=== PATIENT | female | born 1955 | race Caucasian/White ===

== ENCOUNTER 2018-06-20 23:31 | Emergency (ER) | payer OTHER ==
[2018-06-20] MEDS ORDERED: AMIODARONE HCL 150 MG/3 ML INJ IV ONE (23:32)
[2018-06-20] MEDS ORDERED: D50W 25 GM/50 ML SYRINGE IV ONE (23:32)
[2018-06-20] MEDS ORDERED: EPINEPHrine 1 MG/10 ML SYR IV ONE (23:32)
[2018-06-20] MEDS ORDERED: NALOXONE 0.4 MG/ML VIAL IV ONE (23:32)
--- OUTSIDE RECORDS SUMMARY | 2018-06-20 23:37 | XMS REPORT | Continuity of Care Document ---
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 07/07/20 [facility] ANEURYSM, 15 [place] NONRUPTURED" HEP Active 05/29/20 [facility] CW/ELASTROGRAPH [address] [place] [address] Center V02.62 - Active 05/22/20 [facility] HEPATITIS C CAR 15 [place] F/U Active 05/18/[address] 2 WK FOLLOW UP Active 03/28/[address] 722.71 - CERV Active 12/27/19 [facility] DISC DIS W 15 [place] BDDC-CIRRHOSIS OF Active 12/01/19 [facility] LIVER [address] [place] [address] HEP C Active 10/13/[address] AMS Active 10/10/[address] 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<sup[facility], from [facility] 2</sup> [facility] Medical on 06/20/15. Center FH: Diabetes Active 05/10/20 Problem 07/01/2016 Data OPID mellitus<sup>4</s 14 [facility] up[facility] from [facility] Medical on 06/20/15. Center DIABETES Active 05/10/20 Condition 12/26/2014 [facility] 14 Neuro MENINGIOMA Active 05/10/[address] CERVICAL SPINAL Active 02/21/20 Condition 12/26/2014 [facility] STENOSIS 14 Neuro CERVICAL DISC Active 02/21/20 Condition 12/26/2014 [place] DISORDER W/MYELO 14 Neuro Cervical Active 12/29/19 Problem 07/01/2016 Data OPID radiculitis<sup>3 14 migrated Scott </sup> from [facility] on 06/20/15. Center CERVICAL PAIN Active 12/29/19 Condition 12/26/2014 [facility] 14 Neuro CERVICAL Active 12/29/19 Condition 12/26/2014 [facility] RADICULITIS 14 Neuro CERVICAL Active 12/28/19 Condition 12/26/2014 [facility] RADICULOPATHY 14 Neuro Brain tumor Active Problem 07/01/2016 ABDULAZIZ Chavez,[facility] COPD Active Problem 07/01/2016 ABDULAZIZ Chavez,[facility] Hepatitis C Active Problem 07/01/2016 ABDULAZIZ Chavez,[facility] Chronic Resolved Problem 07/01/2016 [facility] bronchitis [facility], ABDULAZIZ Chavez Depression Active Problem 07/01/2016 [facility], ABDULAZIZ Chavez Meningioma Active Problem 07/01/2016 [facility], ABDULAZIZ Chavez Cervical stenosis Active Problem 01/28/2015 ABDULAZIZ Chavez,[facility] Ascites Active Problem 07/01/2016 ABDULAZIZ Chavez,[facility] Hepatic Active Problem 07/01/2016 ABDULAZIZ encephalopathy Scott,[facility] NEOPLASM Active Condition 12/26/2014 [facility] 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 Condition 12/26/2014 [facility] Neuro CHERYL NOBLE CEREBR Active [facility] ALTERED MENTAL Active [facility] Medications Medication Details Route Status Patient Ordering Order Source Instructions Provider Date Lactulose 667 20 gm=30 mL, PO, Active 06/06[facility] [place] MG/ML Oral BID, X 30 day, # 2016 Medical Solution 1800 mL, 6 Center Refill(s), Pharmacy: [id number] spironolactone 50 50 mg=1 tab, PO, Active 06/06[facility] [place] mg oral tablet BID, 0 Refill(s) 2016 [facility] Furosemide 40 MG 40 mg=1 tab, PO, Active 06/06[facility] [place] Oral Tablet Daily, 0 2015 Medical Refill(s) [place] Hydroxyzine 25 mg=1 tab, PO, Active 06/06[facility] Hydrochloride 25 TID, 0 Refill(s) 2015 Medical MG Oral Tablet [place] Aspirin 325 MG 325 mg=1 tab, Active 06/06[facility] Oral Tablet PO, Daily, 0 2015 Medical Refill(s) [place] sofosbuvir 400 mg, PO, Active [facility] Daily, 0 2014 Medical Refill(s) Center Ribavirin See Active [facility] Instructions, 2015 Medical 400 mg in AM Center 600 mg in PM, 0 Refill(s)Special Instructions: 400 mg in AM 600 mg in PM Flexeril PO, TID, 0 Active [facility] Refill(s) 2014 Medical Center Nebulizer 1 ea, MISC, Active [facility] ONCALL, # 1 ea, 2015 Medical 0 Refill(s) [place] aripiprazole 2 MG 2 mg=1 tab, PO, Active [facility] Oral Tablet Daily, 0 2014 Medical [Abilify] Refill(s) [place] TYLENOL PM EXTRA Active [facility] STRENGTH TABS 2014 Neuro TYLENOL EXTRA Active [facility] STRENGTH TABS 2015 Neuro WALE-PLUS G CAPS Active [facility] 2014 Neuro LACTULOSE SOLN Active [facility] 2014 Neuro Lactulose 667 10 gm=15 mL, PO, Active [facility] MG/ML Oral BID, Please 2015 Medical Solution titrate to 2 Center bowel movements a day, # 1,000 mL, 10 Refill(s), Pharmacy: [facility] [id number] Instructions: Please titrate to 2 bowel movements a day 12 HR cetirizine 1 tab, PO, BID, Active [facility] hydrochloride 5 0 Refill(s) 2014 Medical MG / Center Pseudoephedrine Hydrochloride 120 MG Extended Release Tablet [Zyrtec-D] Advil PM 2 tab, PO, Active [facility] Bedtime, 0 2014 Medical Refill(s) [place] aspirin 325 mg 650 mg=2 tab, Active [facility] tablet PO, BID, 0 2014 Medical Refill(s) [place] tiotropium 0.018 1 ea, Route: No Longer [facility] MG/ACTUAT INHALATION, Active 2013 Medical Inhalant Powder Daily, Dosing Center [Spiriva] Weight 62.6, kg, Start date: 10/12/14 9:00:00, Duration: 30 day, Stop date: 11/10/14 9:00:00 Lidocaine 1 patch, TOP, Active [facility] Hydrochloride Daily, # 10 2013 Medical 0.05 MG/MG patch, 0 Center Transdermal Patch Refill(s) [Lidoderm] tiotropium 0.018 18 microgram=1 Active [place] MG/ACTUAT inhalation, 2013 Medical Inhalant Powder INHALATION, [place] [Spiriva] RDaily, 0 Refill(s) Lactulose 667 10 gm=15 mL, PO, Active [place] MG/ML Oral BID, Please 2014 Medical Solution titrate to 2 Center bowel movements a day, # 900 mL, 2 Refill(s)Special Instructions: Please titrate to 2 bowel movements a day tiotropium 0.018 18 microgram, 1 Inactive [place] MG/ACTUAT inhalation, 2013 Medical Inhalant Powder Route: [place] [Spiriva] INHALATION, Drug form: CAP, RDaily, Dosing Weight 62.6, kg, Start date: 10/11/14 12:03:00, Stop date: 11/10/14 8:00:00Notes: (Same As: Spiriva). Lactulose 667 10 gm, 15 mL, Inactive [place] MG/ML Oral Route: PO, Drug 2013 Medical Solution Form: SYRP, [place] Dosing Weight 54.545, kg, TID, Start date: 10/11/14 9:00:00, Duration: 30 day, Stop date: 11/09/14 17:00:00Notes: (Same as:Chronulac) Lactulose 667 10 gm, 15 mL, Inactive [place] MG/ML Oral Route: PO, Drug 2013 Medical Solution Form: SYRP, [place] Dosing Weight 54.545, kg, TID, Start date: 10/11/14 8:00:00, Duration: 30 day, Stop date: 11/09/14 17:00:00Notes: (Same as:Chronulac) TRAMADOL HCL 50 take one pill No Longer 07/13/ [place] MG TABS every 6-8 hours Active 2013 Neuro prn pain TRAMADOL HCL 50 take one pill Active 07/13/ [facility] MG TABS every 6-8 hours 2013 Neuro prn pain pneumococcal 0.5 ml, Route: Inactive [place] capsular IM, Drug Form: 2013 Medical polysaccharide INJ, Daily, [place] type 1 vaccine / Start date: pneumococcal 07/09/14 capsular 12:30:00, polysaccharide Duration: 1 type 10A vaccine doses or times, / pneumococcal Stop date: capsular 07/09/14 polysaccharide 12:30:00Notes: type 11A vaccine (Same as: / pneumococcal Pneumovax 23) capsular Refrigerate polysaccharide type 12F vaccine / pneumococcal capsular polysacchar Acetaminophen 300 See Active [place] MG / Codeine Instructions, 2013 Medical Phosphate 60 MG Pain, 1 - 2 tab Center Oral Tablet PO Q4H 2 day, # [Tylenol with 60 tab, 0 Codeine #4] Refill(s)Special Instructions: 1 - 2 tab PO Q4H 2 day Ondansetron 4 MG 4 mg=1 tab, PO, Active [place] Oral Tablet Q8H, as needed 2013 Medical [Zofran] for Center nausea/vomiting, # 30 tab, 0 Refill(s) Docusate Sodium 100 mg=1 cap, Active [place] 100 MG Oral PO, BID, 2013 Medical Capsule [Colace] Constipation, # Center 100 cap, 0 Refill(s) Ciprofloxacin 500 500 mg=1 tab, Active [place] MG Oral Tablet PO, Q12H, # 14 2014 Medical [Cipro] tab, 0 Refill(s) Center Acetaminophen 325 1-2 tab, PO, No Longer [facility] MG / Hydrocodone Q4-6H, Pain, # Active 2013 Medical Bitartrate 10 MG 60 tab, 2 Center Oral Tablet Refill(s) Ciprofloxacin 250 mg, 1 tab, No Longer [place] Route: PO, Drug Active 2013 Medical form: TAB, Center [id number], Dosing Weight 59.091, kg, Priority: NOW, Start date: 07/07/14 22:59:00, Duration: 3 day, Stop date: 07/10/14 10:59:00Notes: May interfere w/enteral feedings - Take 1 hr before or 2 hrs after antacids, dairy pdt & minerals. On empty stomach. Ciprofloxacin 3 4 drp, Route: No Longer [place] MG/ML / RIGHT EAR, Drug Active 2013 Medical Dexamethasone 1 Form: SOLN, [place] MG/ML Otic Dosing Weight Suspension 59.091, kg, [Ciprodex] Q12H, Start date: 07/07/14 21:00:00, Duration: 30 day, Stop date: 08/06/14 9:00:00Notes: (Same As: Ciprodex) Tylenol 650 mg, 2 tab, No Longer [place] Route: PO, Drug Active 2013 Medical form: TAB, Q6H, Center Dosing Weight 59.091, kg, PRN For Temp > 100.4 F, Start date: 07/07/14 20:48:00, Duration: 30 day, Stop date: 08/06/14 20:47:00Notes: Do not exceed 4 gm/day. (Same as: Tylenol) Zyrtec 10 mg, 1 tab, No Longer [place] Route: PO, Drug Active 2013 Medical form: TAB, BID, Center Dosing Weight 59.091, kg, PRN Allergies, Start date: 07/07/14 17:14:00, Duration: 30 day, Stop date: 08/06/14 17:13:00Notes: (Same As: Zyrtec) Flexeril 10 mg, 1 tab, No Longer [place] Route: PO, Drug Active 2013 Medical form: TAB, TID, Center Dosing Weight 59.091, kg, PRN Spasm, Start date: 07/07/14 6:47:00, Duration: 30 day, Stop date: 08/06/14 6:46:00Notes: (Same As: Flexeril) Acetaminophen 300 2 tab, Route: No Longer [place] MG / Codeine PO, Drug Form: Active 2013 Medical Phosphate 30 MG TAB, Dosing Center Oral Tablet Weight 59.091, [Tylenol with kg, Q4H, PRN Codeine #3] Pain Score 4-6, Start date: 07/07/14 6:32:00, Duration: 30 day, Stop date: 08/06/14 6:31:00Notes: Do not exceed 4gm/day of acetaminophen. (Same as: Tylenol with Codeine # 3) magnesium sulfate 2 gm, 50 mL, Inactive [place] Route: IVPB, 2013 Medical Drug form: INJ, Center ONCE, Start date: 07/07/14 3:00:00, Stop date: 07/07/14 3:00:00 Albuterol 0.833 3 mL, Route: No Longer [place] MG/ML / INHALATION, Drug Active 2013 Medical Ipratropium Form: SOLN, Center [place] 0.167 Dosing Weight MG/ML Inhalant 59.091, kg, Solution [DuoNeb] RQ6H, Start date: 07/07/14 2:00:00, Duration: 30 day, Stop date: 08/05/14 20:00:00Notes: (Same as: Duoneb) Albuterol 0.83 2.49 mg, 3 mL, No Longer [place] MG/ML Inhalant Route: Active 2013 Medical Solution INHALATION, Drug Center form: SOLN, Q2H, Dosing Weight 59.091, kg, PRN as needed for wheezing, Start date: 07/07/14 0:12:00, Duration: 30 day, Stop date: 08/06/14 0:11:00Notes: SEE RT DOCUMENTATION (Same as: Proventil) Vancomycin 6.67 1 gm, Route: No Longer [place] MG/ML Injectable IVPB, Drug form: Active 2013 Medical Solution INJ, Q12H, Center Dosing Weight 59.091, kg, Start date: 07/06/14 21:00:00, Duration: 2 doses or times, Stop date: 07/07/14 9:00:00Notes: (Same As: Vancocin) Infusion rate 2001 mg: infuse over 2.5 hours Ondansetron 4 mg, 2 mL, Inactive [place] Route: IVP, Drug 2013 Medical form: INJ, ONCE, Center Dosing Weight 59.091, kg, PRN Nausea & Vomiting, Start date: 07/06/14 11:30:00Notes: (Same as: Zofran) Naloxone 0.04 mg, 0.1 mL, Inactive [place] Route: IVP, Drug 2013 Medical form: INJ, Center Q2MIN, Dosing Weight 59.091, kg, PRN Narcotic Reversal, Start date: 07/06/14 11:30:00, Duration: 8 doses or times, Stop date: 07/07/14 0:00:00Notes: Same as Narcan Fentanyl 25 microgram, Inactive [place] 0.5 mL, Route: 2013 Medical IVP, Drug form: Center INJ, Q5Min, Dosing Weight 59.091, kg, PRN Pain Score 4-6, Start date: 07/06/14 11:30:00, Duration: 4 doses or times, Stop date: 07/07/14 0:00:00Notes: (Same as: Sublimaze) Preservative free. Hydralazine 10 mg, 0.5 mL, Inactive [place] Route: IVP, Drug 2013 Medical form: INJ, Center Q20Min, Dosing Weight 59.091, kg, PRN Elevated BP, Start date: 07/06/14 11:30:00, Duration: 2 doses or times, Stop date: 07/07/14 0:00:00Notes: (Same as: Apresoline) Push over 5 minutes Flumazenil 0.2 mg, 2 mL, Inactive [place] Route: IVP, Drug 2013 Medical form: INJ, PRN, Center Dosing Weight 59.091, kg, PRN Benzodiazepine Reversal, Initial dose, Start date: 07/06/14 11:30:00, Duration: 30 day, Stop date: 08/05/14 11:29:00Notes: (Same as: Romazicon) Saline Flush 0.9% 5 ml, Route: No Longer [facility] IVP, Drug Form: Active 2013 Medical INJ, Dosing Center Weight 59.091, kg, Q12H, Start date: 07/06/14 9:00:00, Duration: 30 day, Stop date: 08/04/14 21:00:00Notes: (Same as: BD Posiflush) heparin, porcine 5,000 unit, 1 No Longer [facility] mL, Route: Active 2013 Medical SUB-Q, Drug Center form: INJ, Q12H, Dosing Weight 59.091, kg, Start date: 07/06/14 9:00:00, Stop date: 08/04/14 21:00:00Notes: porcine heparin Famotidine 20 mg, 1 tab, No Longer [facility] Route: PO, Drug Active 2013 Medical form: TAB, Q12H, Center Dosing Weight 59.091, kg, Start date: 07/06/14 9:00:00, Duration: 30 day, Stop date: 08/04/14 21:00:00Notes: (Same as: Pepcid) Docusate 100 mg, 1 cap, No Longer [place] Route: PO, Drug Active 2013 Medical form: CAP, Q12H, Center Dosing Weight 59.091, kg, Start date: 07/06/14 9:00:00, Duration: 30 day, Stop date: 08/04/14 21:00:00Notes: (Same as: Colace) (Do Not Crush) sennosides, [facility] 8.6 mg, 1 tab, No Longer [facility] Route: PO, Drug Active 2013 Medical Form: TAB, Center Dosing Weight 59.091, kg, Q12H, Start date: 07/06/14 9:00:00, Duration: 30 day, Stop date: 08/04/14 21:00:00Notes: (Same as: Senokot) Paxil 30 mg, 1 tab, No Longer [facility] Route: PO, Drug Active 2013 Medical form: TAB, Center Daily, Dosing Weight 59.091, kg, Start date: 07/06/14 9:00:00, Duration: 30 day, Stop date: 08/04/14 9:00:00Notes: (Same as: Paxil) Zyrtec 10 mg, 1 tab, No Longer [place] Route: PO, Drug Active 2013 Medical form: TAB, Center Daily, Dosing Weight 59.091, kg, Start date: 07/06/14 9:00:00, Duration: 30 day, Stop date: 08/04/14 9:00:00Notes: (Same As: Zyrtec) Vancomycin 1 gm, Route: Inactive [place] IVPB, Drug form: 2013 Medical INJ, ONCE, Center Dosing Weight 59.091, kg, Start date: 07/06/14 8:28:00, Stop date: 07/06/14 8:28:00 Saline Flush 0.9% 5 ml, Route: No Longer [facility] IVP, Drug Form: Active 2013 Medical INJ, Dosing Center Weight 59.091, kg, PRN, PRN Line Flush, Start date: 07/06/14 6:41:00, Duration: 30 day, Stop date: 08/05/14 6:40:00Notes: (Same as: BD Posiflush) Ondansetron 4 mg, 2 mL, No Longer [place] Route: IVP, Drug Active 2013 Medical form: INJ, Q8H, Center Dosing Weight 59.091, kg, PRN Nausea & Vomiting, Start date: 07/06/14 6:41:00, Duration: 30 day, Stop date: 08/05/14 6:40:00Notes: (Same as: Zofran) Promethazine 12.5 mg, 0.5 mL, No Longer [place] Route: IVPB, Active 2013 Medical Drug form: INJ, Center Q6H, Dosing Weight 59.091, kg, PRN Nausea & Vomiting, Start date: 07/06/14 6:41:00, Stop date: 08/05/14 6:40:00 Sodium Chloride 1,000 mL, Rate: No Longer [place] 0.154 MEQ/ML 50 ml/hr, Infuse Active 2013 Medical Injectable over: 20 hr, Center Solution Route: IV, Dosing Weight 59.091 kg, Total Volume: 1,000, Start date: 07/06/14 6:41:00, Duration: 30 day, Stop date: 08/05/14 6:40:00 Hydromorphone 0.5 mg, 0.25 mL, No Longer [place] Route: IVP, Drug Active 2013 Medical form: INJ, Q3H, Center Dosing Weight 59.091, kg, PRN Pain Score 7-10, Start date: 07/06/14 6:41:00, Duration: 30 day, Stop date: 08/05/14 6:40:00Notes: Same as: Dilaudid Acetaminophen 325 1 tab, Route: No Longer [place] MG / Hydrocodone PO, Drug Form: Active 2013 Medical Bitartrate 10 MG TAB, Dosing Center Oral Tablet Weight 59.091, kg, Q4H, PRN Pain Score 1-3, Start date: 07/06/14 6:41:00, Duration: 30 day, Stop date: 08/05/14 6:40:00Notes: Do not exceed 4gm/day of acetaminophen. (Same as: [place] 325/10) Flexeril 10 mg, 1 tab, No Longer [place] Route: PO, Drug Active 2013 Medical form: TAB, TID, Center Dosing Weight 59.091, kg, PRN Allergies, Start date: 07/06/14 6:38:00, Duration: 30 day, Stop date: 08/05/14 6:37:00Notes: (Same As: Flexeril) vancomycin 1 gm, Route: No Longer [place] IVPB, Drug form: Active 2013 Medical INJ, PRE OP, Center Start date: 07/06/14 6:00:00, Duration: 1 day, Stop date: 07/07/14 5:59:00Notes: (Same As: Vancocin) Infusion rate 2001 mg: infuse over 2.5 hours HYDROCODONE-ACETA po bid No Longer 06/20/ [facility] MINOPHEN 10-325 Active 2013 Neuro MG TABS HYDROCODONE-ACETA po bid Active 06/20/ [place] MINOPHEN 10-325 2013 Neuro MG TABS HYDROCODONE-ACETA po bid Active 06/20/ [place] MINOPHEN 10-325 2013 Neuro MG TABS cetirizine 10 mg=1 tab, PO, Active [facility] hydrochloride 10 Daily, # 30 tab, 2013 [place] MG Oral Tablet 0 Refill(s) [Zyrtec] Cyclobenzaprine 10 mg=1 tab, PO, Active OPID hydrochloride 10 TID, for spasm, 2013 [place] MG Oral Tablet # 30 tab, 0 [Flexeril] Refill(s) Acetaminophen 325 1-2 tab, PO, Active OPID MG / Hydrocodone Q4-6H, Pain, # 2013 [place] Bitartrate 10 MG 30 tab, 0 Oral Tablet Refill(s) NORCO 10-325 MG 1-2 tablets po No Longer 04/04/ [place] TABS every 8 hours as Active 2013 Neuro needed for pain NORCO 10-325 MG 1-2 po q 4-6 No Longer 03/09/ [facility] TABS hours prn pain Active 2013 Neuro CYCLOBENZAPRINE 1 po tid prn No Longer 03/09/ [facility] HCL 10 MG TABS muscle spasm Active 2013 Neuro CYCLOBENZAPRINE 1 po tid prn No Longer 03/09/ [facility] HCL 10 MG TABS muscle spasm Active 2013 Neuro CYCLOBENZAPRINE take one tab No Longer HCL 5 MG TABS every 8hrs prn Active 2013 Neuro muscle spasm ULTRAM 50 MG TABS take 1-2 tabs No Longer cher every 4-6 hrs Active 2013 Neuro prn pain FLEXERIL prn No Longer 02/08/ [place] Active 2013 Neuro PAXIL 30MG 1 po daily Active 2013 Neuro Allergies, Adverse Reactions, Alerts Substance Category Reaction Severity Reaction Status Date Comments Source type Reported KEFLEX Drug KEFLEX [place] allergy 4 Neuro cephalexin< Assertion Drug Active Data OP[facility] sup>1</sup> allergy 4 migrated [place] from [employer] by [employer] [facility] on 06/19/15. Originally documented as KEFLEX. Keflex Assertion Drug Active OPID allergy [place] Immunizations Immunization Date Given Site Status Last Comments Source Updated pneumococcal 07/09/2014 Right completed [place] [facility] 23-valent vaccine [facility] [place], ABDULAZIZ Chavez Results Order Name Results Value Reference Date Interpretation Comments Source Range Abd Liver Abd Liver EXAM: CT ABDOMEN WITH AND WITHOUT CONTRAST 06/28 - OPID Protocol Protocol w/wo /2015 - [place] w/wo IV IV contrast contrast CT CT DATE: 06/28/2016 Read by: Nieves Nascimento MD Dictated Date/time: 07/02/16 09:11 Electronically Signed by: Nieves Nascimento MD 07/02/16 09:22 FINAL REPORT INDICATION: B18.2 Chronic viral hepatitis C ADDITIONAL INFORMATION: None. COMPARISON: 06/09/2015 TECHNIQUE: Volumetric CT acquisition of the abdomen both prior to and following intravenous contrast, in precontrast, arterial, portal venous and delayed phases of enhancement, per the dynamic liver pro tocol. Axial, sagittal and coronal reconstructions. IV contrast: 100 mL Omnipaque 350 FINDINGS: Lines and tubes: None. Lower thorax: Clear. Liver Craniocaudal length: 14.6 cm. Normal. Density: Normal. Surface nodularity: Present. Enhancing hepatic masses > 2cm: None. Enhancing hepatic masses < 2cm: None. Non-enhancing/cystic hepatic lesions: None. The previously seen hepatic hypodensity in inferior right lobe of the liver is not identified on today's exam. Hepatic vessels: Hepatic arterial anatomy: The right hepatic artery arises directly from the aorta. Arterial stenoses: None. Portal vein: Patent. Caliber: 1.3 cm Portosystemic collaterals are prominent collateral vessels are noted within the splenic hilum. A very small recanalized umbilical vein is noted. Hepatic, splenic and superior mesenteric veins, and IVC: Patent. Regional lymph nodes: Subcentimeter and a few borderline lymph nodes are seen in the upper abdomen in the joanie hepatis and gastrohepatic region. Biliary tree: No intra- or extrahepatic biliary ductal dilation. Gallbladder: Normal. No CT evidence of gallstones. Pancreas: Normal. Spleen: Normal. Adrenals: Normal. Kidneys: Kidneys are symmetric in size and enhancement. Cortical scarring with calcifications is seen within the inferior pole of the right kidney, unchanged. Delayed images demonstrate prompt excretion of contrast into normal caliber ureters. Gastrointestinal tract: Normal caliber. Peritoneum and retroperitoneum: No ascites or free air. No fluid collection. Distant lymph nodes: Normal. Vasculature: Atherosclerotic calcifications involve the abdominal aorta as well as the takeoff of the renal arteries bilaterally.. Bones: Normal. Soft tissues: Normal. IMPRESSION: 1. Cirrhosis without evidence of focal hepatic mass. 2. Evidence of portal hypertension with some collateral vessels, particularly within the splenic hilum.. 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 Technique: Examination was performed in a helical scanner following the intravenous administration of contrast material. MIP reformation of the intracranial vasculature in the different orthogonal plane s and 3D angiographic post processing was performed in a different workstation. 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 Aneurysmal clip is in place along the dome of the aneurysm. [place] of the residual 13 x 15 mm aneurysmal sac are calcified. Central area of hyperattenuation is redemonstrated. (A precontrast exam was not obtained). There is no surrounding edema or mass effect. Both pericallosal arteri es remain patent and are being displaced by the aneurysm to the left. No new intracranial aneurysms. IMPRESSION: Status post clipping of the pericallosal artery aneurysm. Central area of hyperdensity is again demonstrated, mostly or completely due to calcification. Abd Liver Abd Liver EXAM: CT ABDOMEN WITH AND WITHOUT CONTRAST 06/09 - OPID Protocol Protocol w/ - Scott IV IV contrast contrast CT CT INDICATION: HCC Surveillance. Read by: Tuan Mckeon MD Dictated Date/time: 06/12/15 08:33 Electronically Signed by: Tuan Mckeon MD 06/12/15 08:59 FINAL REPORT COMPARISON: No relevant priors. TECHNIQUE: Dynamic Liver Protocol: Helical acquisition of the abdomen was obtained from the lung bases to the lower abdomen before and after uneventful administration of 100 cc. Omnipaque intravenous c ontrast in the precontrast, arterial, portal venous and delayed phases of contrast enhancement. Axial, sagittal and coronal images were interpreted. DISCUSSION: Bandlike and micronodular areas of opacity in the lung bases are nonspecific and may relate to areas of subsegmental atelectasis and areas of small airways infection/inflammation. These can be further e valuated on CT of the chest if clinically indicated. The liver shows CT appearances of cirrhosis. The right lobe of the liver measures 16.4 cm on the coronal reformats. No hepatic masses are identified. 5 mm nonenhancing hypodensity in the inferior right hepatic lobe segment (series 8, image 58) is likely a simple cyst. Intrahepatic and extrahepatic bile ducts are not dilated. Gallbladder is unremarkable. No pancreatic masses. The common hepatic artery directly arises from the abdominal aorta adjacent to the celiac axis. Celiac axis and superior mesenteric artery are unremarkable. Aorta has normal caliber. Portal vein is dilated but patent. Gastroesophageal varices, recanalized umbilical vein, and collateral vessels in the splenic hilum are noted. Hepatic, splenic and superior mesenteric veins, and IVC are patent. Prominent perigastric and joanie hepatis lymph nodes are noted, nonspecific , but likely reactive. There is no ascites. Spleen is enlarged measuring 14.4 cm in craniocaudal extent. Stomach is normal. Visualized small bowel and colon have normal caliber. No free air noted. Adrenals are unremarkable. The visualized kidneys, collecting systems and ureters are remarkable for cortical scarring of the inferior pole of the right kidney. Osseus and soft tissue structures demonstrate no significant abnormalities. IMPRESSION: 1. Findings of cirrhosis and portal hypertension with splenomegaly and collateral vessels, as described above. No definite hepatic mass is identified on today's exam. 2. 5 mm nonenhancing hypodensity in the inferior right hepatic lobe is likely a simple cyst. 3. Bandlike and micronodular areas of opacity in the lung bases are nonspecific and may relate to areas of subsegmental atelectasis/scarring. Small airways infection/inflammation can also have a similar imaging appearance and if clinically indicated evaluation with CT of the chest can be performed for further characterization. Spine Spine EXAM: XR CERVICAL SPINE 2 VIEWS 12/26 - OPID cervical 2 cervical 2 - [place] or 3 view 3 view DX This report was dictated by a Training And Development Head/ Fellow. I have personally reviewed the images as DX well as the Resident's interpretation and agree with the findings. DATE: 2014-12-26 15:11:00 Read by: Marielena Mccord MD Resident: Marielena Mccord MD Dictated Date/time: 12/26/14 15:19 Electronically Signed by: Luz Rosario MD 12/26/14 17:50 FINAL REPORT INDICATION: 723.1 Cervicalgia COMPARISON: Cervical spine MRI dated 02/08/2014 TECHNIQUE: AP and lateral radiographs of the cervical spine show from the skull base through C7. FINDINGS: There has been interval anterior cervical discectomy and fusion of levels C4-C7. There is an anterior plate and fibular strut graft transversing C4 through C7 with interbody screws at both C4 and C7. The C4 screws show no perihardware lucency. There is slight lucency around the C7 screws on the lateral view. Along the fibular graft, there is incomplete osseous ankylosis. The remaining verteb ral body heights and disc heights are maintained. Cervical spine alignment is maintained. No prevertebral or paraspinous soft tissue abnormality is identified. IMPRESSION: 1. Interval anterior cervical discectomy and fusion at levels C4-C7. 2. Slight perihardware lucency around the C7 screws, may represent artifact , especially related to nearby margin of fibular strut graft, vs possible screw loosening. Recommend attention at this area on subsequent examinations. CHEM PANEL Magnesium Lvl 1.7 mg/dL 1.8 - 2.4 10/11 [facility] CHEM PANEL eGFR 101 10/11 1Result Comment: The eGFR is calculated using the CKD-EPI formula. In most young, healthy individuals the eGFR will be > 90 mL/min/1.73m2. The eGFR declines with age. An eGFR of 60-89 may be normal in [facility] mL/min/1.7 /2013 some populations, particularly the elderly, for whom the CKD-EPI formula has not been extensively validated. Use of the eGFR is not recommended in the following populations: [address] Individuals with unstable creatinine concentrations, including patients and those with serious co-morbid conditions. Patients with extremes in muscle mass or diet. The data above are obtained from the National Kidney Disease Education Program (NKDEP) which additionally recommends that when the eGFR is used in patients with extremes of body mass index for purposes of drug dosing, the eGFR should be multiplied by the estimated BMI. CHEM PANEL Bili Total 0.8 mg/dL 0.2 - 1.3 10/11 [facility] CHEM PANEL ALT 308 unit/L 0 - 65 10/11 [facility] CHEM PANEL Total Protein 7.1 g/dL 6.4 - 8.4 10/11 [facility] CHEM PANEL Calcium Lvl 8.7 mg/dL 8.5 - 10.5 10/11 [facility] CHEM PANEL Albumin Lvl 3.0 g/dL 3.5 - 5.0 10/11 [facility] CHEM PANEL Alk Phos 222 unit/L 39 - 136 10/11 [facility] CHEM PANEL AST 388 unit/L 0 - 37 10/11 [facility] CHEM PANEL BUN 9 mg/dL 7 - 22 10/11 [facility] CHEM PANEL Glucose Lvl 90 mg/dL 70 - 99 10/11 3Interpretive Data: Adult reference range values reflect the clinical guidelines of the [employer]. [facility] CHEM PANEL Sodium Lvl 141 meq/L 135 - 145 10/11 [facility] CHEM PANEL Creatinine 0.6 mg/dL 0.5 - 1.4 10/11 [facility] CHEM PANEL Chloride Lvl 107 meq/L 95 - 109 10/11 [facility] CHEM PANEL Potassium Lvl 3.6 meq/L 3.5 - 5.1 10/11 [facility] CHEM PANEL CO2 24 meq/L 24 - 32 10/11 [facility] CHEM PANEL AGAP 13.6 meq/L 10.0 - 10/11 20.0 [facility] CHEM PANEL B/C Ratio 15 6 - 25 10/11 [facility] CHEM PANEL Globulin 4.1 g/dL 2.0 - 4.0 10/11 [facility] CHEM PANEL A/G Ratio 0.7 0.7 - 1.6 10/11 [facility] CHEM PANEL Phosphorus 3.0 mg/dL 2.5 - 4.5 10/11 [facility] HEMATOLOGY PT 13.9 s 12.0 - 10/11 14.7 [facility] HEMATOLOGY INR 1.07 0.85 - 10/11 9Interpretive Data: RECOMMENDED RANGES FOR PROTIME INR: [facility] . 2.0-3.0 for most medical and surgical thromboembolic states. Medical 2.5-3.5 for artificial heart valves and recurrent embolism. Center INR SHOULD BE USED ONLY FOR PATIENTS ON STABLE ANTICOAGULANT THERAPY. HEMATOLOGY Segs-Bands # 2.8 K/CMM 1.5 - 8.1 10/11 [facility] HEMATOLOGY Eosinophils 3.1 % 0.0 - 4.0 10/11 [facility] HEMATOLOGY Monocytes 7.6 % 2.0 - 12.0 10/11 [facility] HEMATOLOGY Lymphocytes 30.1 % 20.0 - 10/11 [place] 40.0 [facility] HEMATOLOGY Eosinophils # 0.1 K/CMM 0.0 - 0.5 10/11 [facility] HEMATOLOGY Lymphocytes # 1.5 K/CMM 1.0 - 5.5 10/11 [facility] HEMATOLOGY Basophils 0.9 % 0.0 - 1.0 10/11 [facility] HEMATOLOGY Monocytes # 0.4 K/CMM 0.0 - 0.8 10/11 [facility] HEMATOLOGY Segs 58.3 % 45.0 - 10/11 [place] 75.0 [facility] HEMATOLOGY RDW 13.8 % 11.5 - 10/11 [facility] 14.5 /2013 [facility] HEMATOLOGY Platelet 73 K/CMM 133 - 450 12 [facility] HEMATOLOGY MCH 33.1 pg 27.0 - 10/11 [place] 31.0 /2013 [facility] HEMATOLOGY MCHC 34.6 g/dL 32.0 - 10/11 [place] 36.0 /2013 [facility] HEMATOLOGY MCV 95.5 fL 80.0 - 10/11 [facility] 98.0 /2013 [facility] HEMATOLOGY Hct 39.7 % 36.0 - 10/11 [place] 48.0 /2013 [facility] HEMATOLOGY Hgb 13.8 g/dL 12.0 - 10/11 [place] 16.0 /2013 [facility] HEMATOLOGY RBC 4.16 M/CMM 4.20 - 10/11 [place] 5.40 /2013 [facility] HEMATOLOGY MPV 10.0 fL 7.4 - 10.4 10/11 [facility] HEMATOLOGY WBC 4.9 K/CMM 3.7 - 10.4 10/11 [facility] THYROID TSH 1.290 0.360 - 10/11 [facility] PANEL uIU/mL 3.740 /2013 [facility] URINE AND UA Protein Negative Negative 10/10 [facility] STOOL mg/dL mg/dL /2013 [facility] URINE AND UA Ketones Negative Negative 10/10 [facility] STOOL mg/dL mg/dL [facility] URINE AND UA Glucose Negative Negative 10/10 [facility] mg/dL mg/dL /2013 [facility] URINE AND UA Blood Negative Negative 10/10 [facility] (10/10/14 4:15 PM) [place] URINE AND UA Bili Negative Negative 10/10 [facility] Medical *NA* [place] (10/10/14 4:15 PM) URINE AND UA 0.2 EU/dL 0.1 - 1.0 10/10 [facility] Urobilinogen /2013 [facility] URINE AND UA Nitrite Negative Negative 10/10 [facility] (10/10/14 4:15 PM) [place] URINE AND UA Leuk Est Negative Negative 10/10 [facility] (10/10/14 4:15 PM) [place] URINE AND UA Color Yellow Yellow 10/10 [facility] Medical *NA* [place] (10/10/14 4:15 PM) URINE AND UA pH 7.0 5.0 - 8.0 10/10 [facility] URINE AND UA Turbidity Clear Clear 10/10 [facility] (10/10/14 4:15 PM) [place] URINE AND UA Spec Grav 1.010 <=1.030 10/10 [facility] URINE AND Micro? Performed 10/10 [facility] (10/10/14 4:15 PM) [place] URINE AND UA RBC None Seen 0 - 2 10/10 [facility] (10/10/14 4:15 PM) [place] URINE AND UA Sq Epi Rare /LPF Few /LPF 10/10 [facility] URINE AND UA WBC 0-2 /HPF None Seen 10/10 [facility] /HPF [facility] URINE AND UA Bacteria Occasional None Seen 10/10 [facility] /HPF /HPF [facility] URINE AND UA Amorph Occasional None Seen 10/10 [facility] Dalia /HPF /HPF [facility] URINE AND UA Mucus Rare /LPF None Seen 10/10 [facility] STOOL /LPF [facility] CHEM PANEL Ammonia 54.0 <=45.0 10/10 [facility] umol/L uMol/L [facility] Liver w Liver w Liver EXAM: US LIVER WITH LIVER DOPPLER 10/10 - [facility] Liver vessels - [facility] vessels Doppler US This report was dictated by a Training And Development Head/ Fellow. I have personally reviewed the images as Center Doppler US well as the Resident's interpretation and agree with the findings. DATE: 2014-10-10 21:57:00 Read by: Yuan Webb MD Resident: Yuan Webb MD Dictated Date/time: 10/11/14 09:01 Electronically Signed by: Yunior Negrete MD 10/11/14 11:13 FINAL REPORT INDICATION: Abdominal distension. History of hepatitis C. COMPARISON: None available TECHNIQUE: The liver and liver vessels are evaluated using real-time acuna scale and color Doppler sonography. FINDINGS: The liver has a heterogeneous echotexture with nodular contour, and measures 14 cm in length. There is no focal intrahepatic mass. No intrahepatic or extrahepatic biliary dilatation. The common bile duct has a normal caliber of 3 mm. The gallbladder wall is circumferentially slightly thickened, measuring up to 3 mm. No cholelithiasis or sludge. No gallbladder wall distention. There is no pericholecystic fluid and no sonographic Liriano's sign was elicited. The main, right and left portal veins are patent, with normal peak systolic velocities. The main portal vein is normal in diameter and measures 1.1 cm. The right, middle and left hepatic veins are patent with antegrade flow. The IVC is patent without filling defects. The main, right and left hepatic arteries are patent, with normal waveforms , resistive indices and peak systolic velocities. The visualized pancreatic head and body are normal. The spleen is echogenic and enlarged, measuring up to 16.1 centimeter in maximal dimension. The splenic artery and vein are patent. No significant variceal development is appreciated. No free intraperitoneal fluid was detected. IMPRESSION: 1. Findings suggestive of hepatic cirrhosis and early portal hypertension. All vessels are patent with antegrade flow. 2. No focal intrahepatic mass. 3. Mild gallbladder wall thickening is most consistent with underlying hepatic disease. DRUG SCREEN U Cocaine Scr Negative Negative 10/10 [facility] *NA* Center (10/10/14 2:33 PM) DRUG SCREEN U Cannab Scr Positive Negative 10/10 [facility] *ABN* Center (10/10/14 2:33 PM) DRUG SCREEN U Opiate Scr Positive Negative 10/10 [facility] *ABN* [place] (10/10/14 2:33 PM) DRUG SCREEN U Benzodia Positive Negative 10/10 [facility] *ABN* [place] (10/10/14 2:33 PM) DRUG SCREEN U Phencyc Scr Negative Negative 10/10 [facility] *NA* Center (10/10/14 2:33 PM) DRUG SCREEN UDS Note See Note 5 10/10 5Interpretive Data: Drugs reported as positive have not been confirmed by a second method and should be used for medical purposes only. To order Medical (10/10/14 2:33 PM) confirmation, contact laboratory. Center note: Below are cut-off concentrations for all urine drugs of abuse performed in the laboratory. Some drugs listed in the table may not be included in this panel. Description Cut-off concentration Amphetamine 1000 ng/mL Barbiturates 200 ng/mL Benzodiazepines 300 ng/mL Cocaine metabolites 300 ng/mL Opiates 300 ng/mL Phencyclidine 25 ng/mL Propoxyphene 300 ng/mL Marijuana metabolites 50 ng/mL Methadone 300 ng/mL Urine alcohol 20 mg/dL DRUG SCREEN U Susy Scr Negative Negative 10/10 [facility] *NA* Center (10/10/14 2:33 PM) DRUG SCREEN U Amph Scr Negative Negative 10/10 [facility] *NA* [place] (10/10/14 2:33 PM) CHEM PANEL A/G Ratio 0.7 0.7 - 1.6 10/10 [facility] CHEM PANEL Globulin 4.0 g/dL 2.0 - 4.0 10/10 [facility] CHEM PANEL Bili Indirect 0.5 mg/dL 0.0 - 1.0 10/10 [facility] CHEM PANEL ALT 298 unit/L 0 - 65 10/10 [facility] CHEM PANEL Albumin Lvl 2.8 g/dL 3.5 - 5.0 10/10 [facility] CHEM PANEL AST 396 unit/L 0 - 37 10/10 [facility] CHEM PANEL Alk Phos 207 unit/L 39 - 136 10/10 [facility] CHEM PANEL Bili Direct 0.1 mg/dL 0.0 - 0.3 10/10 [facility] CHEM PANEL Bili Total 0.6 mg/dL 0.2 - 1.3 10/10 [facility] CHEM PANEL Total Protein 6.8 g/dL 6.4 - 8.4 10/10 [facility] CHEM PANEL Lactic Acid 1.3 mmol/L 0.5 - 2.2 10/10 [facility] ELECTROLYTE AGAP 9.8 meq/L 10.0 - 10/10 [facility] 20.0 [facility] ELECTROLYTE Sodium Lvl 136 meq/L 135 - 145 10/10 [facility] ELECTROLYTE Glucose Lvl 97 mg/dL 70 - 99 10/10 4Interpretive Data: Adult reference range values reflect the clinical guidelines of the [employer]. [facility] ELECTROLYTE Creatinine 0.6 mg/dL 0.5 - 1.4 10/10 [facility] Lv [facility] ELECTROLYTE BUN 9 mg/dL 7 - 22 10/10 [facility] ELECTROLYTE Calcium Lvl 8.8 mg/dL 8.5 - 10.5 10/10 [facility] ELECTROLYTE CO2 25 meq/L 24 - 32 10/10 [facility] ELECTROLYTE Chloride Lvl 105 meq/L 95 - 109 10/10 [facility] ELECTROLYTE Potassium Lvl 3.8 meq/L 3.5 - 5.1 10/10 [facility] ELECTROLYTE eGFR 101 10/10 2Result Comment: The eGFR is calculated using the CKD-EPI formula. In most young, healthy individuals the eGFR will be > 90 mL/min/1.73m2. The eGFR declines with age. An eGFR of 60-89 may be normal in [facility] mL/min/1. some populations, particularly the elderly, for whom the CKD-EPI formula has not been extensively validated. Use of the eGFR is not recommended in the following populations: [address] Individuals with unstable creatinine concentrations, including patients and those with serious co-morbid conditions. Patients with extremes in muscle mass or diet. The data above are obtained from the National Kidney Disease Education Program (NKDEP) which additionally recommends that when the eGFR is used in patients with extremes of body mass index for purposes of drug dosing, the eGFR should be multiplied by the estimated BMI. HEMATOLOGY Basophils # 0.0 K/CMM 0.0 - 0.2 10/10 [facility] HEMATOLOGY Segs 62.1 % 45.0 - 10/10 [facility] 75.0 [facility] HEMATOLOGY Monocytes # 0.3 K/CMM 0.0 - 0.8 10/10 [facility] HEMATOLOGY Segs-Bands # 2.8 K/CMM 1.5 - 8.1 10/10 [facility] HEMATOLOGY Lymphocytes # 1.2 K/CMM 1.0 - 5.5 10/10 [facility] HEMATOLOGY Basophils 1.0 % 0.0 - 1.0 10/10 [facility] HEMATOLOGY Eosinophils 3.1 % 0.0 - 4.0 10/10 [facility] HEMATOLOGY Monocytes 6.3 % 2.0 - 12.0 10/10 [facility] HEMATOLOGY Lymphocytes 27.5 % 20.0 - 10/10 [place] 40.0 /2013 [facility] HEMATOLOGY Eosinophils # 0.1 K/CMM 0.0 - 0.5 10/10 [facility] HEMATOLOGY MCHC 33.1 g/dL 32.0 - 10/10 [place] 36.0 /2013 [facility] HEMATOLOGY Platelet 75 K/CMM 133 - 450 10/10 [facility] HEMATOLOGY MCV 92.9 fL 80.0 - 10/10 98.0 /2013 [facility] HEMATOLOGY MCH 30.7 pg 27.0 - 10/10 [place] 31.0 /2013 [facility] HEMATOLOGY Hct 39.3 % 36.0 - 10/10 [place] 48.0 /2013 [facility] HEMATOLOGY WBC 4.4 K/CMM 3.7 - 10.4 10/10 [facility] HEMATOLOGY RDW 13.2 % 11.5 - 10/10 [place] 14.5 /2013 [facility] HEMATOLOGY RBC 4.23 M/CMM 4.20 - 10/10 [place] 5.40 /2013 [facility] HEMATOLOGY Hgb 13.0 g/dL 12.0 - 10/10 [place] 16.0 [facility] HEMATOLOGY MPV 10.2 fL 7.4 - 10.4 10/10 [facility] Chest 1view Chest 1view EXAM: XR CHEST 1 VIEW 10/10 - - [facility] This report was dictated by a Training And Development Head/Fellow. I have personally reviewed the images as Center well as the Resident's interpretation and agree with the findings. DATE: 10/10/2014 at 1456 hours Read by: Pop Phillips MD Resident: Pop Phillips MD Dictated Date/time: 10/10/14 15:32 Electronically Signed by: Clara Koch MD 10/10/14 18:45 FINAL REPORT INDICATION: Coughing COMPARISON: Chest radiograph dated 07/08/2014. TECHNIQUE: Single AP view of the chest DISCUSSION: Mild interstitial prominence is thought to be related to technique. There are no focal parenchymal consolidations, pleural effusions, pneumothorax. The mediastinum silhouette is not enlarged. Interval resolution of the right lower lobe airspace opacity and small right-sided pleural effusion. Anterior fusion hardware is incompletely visualized along the lower cervical spine. There are mild degenerative changes within the bilateral acromioclavicular joints. Again demonstrated is mild leftward curvature of the thoracic spine. Remote fracture of the posterior aspect of the left third rib is again noted. IMPRESSION: 1. No evidence of an acute cardiopulmonary process. 2. Interval resolution of the right lower lobe airspace opacity and small right-sided pleural effusion. Brain wo Brain wo EXAM: CT BRAIN WITHOUT CONTRAST 10/10 - [facility] contrast CT contrast CT /2013 - [facility] Center DATE: Oct 10, 2014 02:30:00 PM Read by: Dwaine Culp MD Dictated Date/time: 10/10/14 17:23 Electronically Signed by: Dwaine Culp MD 10/10/14 17:32 FINAL REPORT INDICATION: Drowsiness COMPARISON: Brain MRI June 14, 2014 TECHNIQUE: Contiguous axial images of the brain are obtained from the skull base to the vertex without administration of intravenous contrast material. Bone and soft tissue algorithms are provided. Comp uter reformatted coronal and sagittal images are also provided in a soft tissue algorithm. FINDINGS: The patient has had an interval frontal craniotomy. Aneurysm clips have been placed in the anterior interhemispheric midline adjacent to the densely calcified vascular mass. No intraparenchymal or extra-axial hemorrhage is evident. The appearance of the brain parenchyma is unchanged. Incidental imaging of the orbits, paranasal sinuses, skull, and skull base also demonstrates no other interval change. IMPRESSION: Interval postsurgical changes. No acute intracranial abnormality. CT examination of the brain is unchanged. ELECTROLYTE AGAP 12.4 meq/L 10.0 - 07/09 [facility] 20.0 [facility] ELECTROLYTE eGFR 102 07/09 1Result Comment: The eGFR is calculated using the CKD-EPI formula. In most young, healthy individuals the eGFR will be > 90 mL/min/1.73m2. The eGFR declines with age. An eGFR of 60-89 may be normal in [facility] mL/min/1.7 /2013 some populations, particularly the elderly, for whom the CKD-EPI formula has not been extensively validated. Use of the eGFR is not recommended in the following populations: [place] [address] Center Individuals with unstable creatinine concentrations, including patients and those with serious co-morbid conditions. Patients with extremes in muscle mass or diet. The data above are obtained from the National Kidney Disease Education Program (NKDEP) which additionally recommends that when the eGFR is used in patients with extremes of body mass index for purposes of drug dosing, the eGFR should be multiplied by the estimated BMI. ELECTROLYTE Sodium Lvl 139 meq/L 135 - 145 07/09 [facility] ELECTROLYTE Calcium Lvl 8.3 mg/dL 8.5 - 10.5 07/09 [facility] ELECTROLYTE CO2 26 meq/L 24 - 32 07/09 [facility] ELECTROLYTE Chloride Lvl 104 meq/L 95 - 109 07/09 [facility] ELECTROLYTE Potassium Lvl 3.4 meq/L 3.5 - 5.1 07/09 [facility] ELECTROLYTE Creatinine 0.6 mg/dL 0.5 - 1.4 07/09 [facility] ELECTROLYTE BUN 8 mg/dL 7 - 22 07/09 [facility] ELECTROLYTE Glucose Lvl 102 mg/dL 70 - 99 07/09 4Interpretive Data: Adult reference range values reflect the clinical guidelines of the [employer]. [facility] HEMATOLOGY MPV 10.0 fL 7.4 - 10.4 07/09 [facility] HEMATOLOGY Platelet 73 K/CMM 133 - 450 07/09 [facility] HEMATOLOGY RDW 13.1 % 11.5 - 07/09 14.5 [facility] HEMATOLOGY MCHC 34.7 g/dL 32.0 - 07/09 36.0 [facility] HEMATOLOGY MCH 33.6 pg 27.0 - 07/09 31.0 [facility] HEMATOLOGY Hgb 12.2 g/dL 12.0 - 07/09 16.0 [facility] HEMATOLOGY RBC 3.62 M/CMM 4.20 - 07/09 5.40 [facility] HEMATOLOGY MCV 96.9 fL 80.0 - 07/09 98.0 [facility] HEMATOLOGY Hct 35.0 % 36.0 - 07/09 48.0 [facility] HEMATOLOGY WBC 8.9 K/CMM 3.7 - 10.4 07/09 [facility] HEMATOLOGY Monocytes # 0.6 K/CMM 0.0 - 0.8 07/09 [facility] HEMATOLOGY Lymphocytes # 1.4 K/CMM 1.0 - 5.5 07/09 [facility] HEMATOLOGY Eosinophils 0.5 % 0.0 - 4.0 07/09 [facility] HEMATOLOGY Lymphocytes 15.4 % 20.0 - 07/09 40.0 [facility] HEMATOLOGY Segs 76.7 % 45.0 - 07/09 75.0 [facility] HEMATOLOGY Monocytes 7.2 % 2.0 - 12.0 07/09 [facility] HEMATOLOGY Segs-Bands # 6.8 K/CMM 1.5 - 8.1 07/09 [facility] HEMATOLOGY Basophils 0.2 % 0.0 - 1.0 07/09 [facility] CHEM PANEL eGFR 82 07/08 2Result Comment: The eGFR is calculated using the CKD-EPI formula. In most young, healthy individuals the eGFR will be >90 mL/ min/1.73m2. The eGFR declines with age. An eGFR of 60-89 may be normal in [facility] mL/min/1. some populations, particularly the elderly, for whom the CKD-EPI formula has not been extensively validated. Use of the eGFR is not recommended in the following populations: [address] Individuals with unstable creatinine concentrations, including patients and those with serious co-morbid conditions. Patients with extremes in muscle mass or diet. The data above are obtained from the National Kidney Disease Education Program (NKDEP) which additionally recommends that when the eGFR is used in patients with extremes of body mass index for purposes of drug dosing, the eGFR should be multiplied by the estimated BMI. CHEM PANEL Calcium Lvl 8.0 mg/dL 8.5 - 10.5 07/08 [facility] CHEM PANEL AGAP 9.7 meq/L 10.0 - 07/08 .0 [facility] CHEM PANEL CO2 28 meq/L 24 - 32 07/08 [facility] CHEM PANEL Potassium Lvl 3.7 meq/L 3.5 - 5.1 07/08 [facility] CHEM PANEL Chloride Lvl 106 meq/L 95 - 109 07/08 [facility] CHEM PANEL Sodium Lvl 140 meq/L 135 - 145 07/08 [facility] CHEM PANEL Creatinine 0.8 mg/dL 0.5 - 1.4 07/08 [facility] CHEM PANEL BUN 10 mg/dL 7 - 22 07/08 [facility] CHEM PANEL Glucose Lvl 103 mg/dL 70 - 99 07/08 5Interpretive Data: Adult reference range values reflect the clinical guidelines of the [employer]. [facility] HEMATOLOGY Basophils 0.4 % 0.0 - 1.0 07/08 [facility] HEMATOLOGY Segs-Bands # 7.8 K/CMM 1.5 - 8.1 07/08 [facility] HEMATOLOGY Eosinophils 0.2 % 0.0 - 4.0 07/08 [facility] HEMATOLOGY Monocytes # 0.7 K/CMM 0.0 - 0.8 07/08 [facility] HEMATOLOGY Lymphocytes # 1.5 K/CMM 1.0 - 5.5 07/08 [facility] HEMATOLOGY Monocytes 7.0 % 2.0 - 12.0 07/08 [facility] HEMATOLOGY Segs 77.8 % 45.0 - 07/08 [facility] 75.0 [facility] HEMATOLOGY Lymphocytes 14.6 % 20.0 - 07/08 [facility] 40.0 [facility] HEMATOLOGY Platelet 66 K/CMM 133 - 450 07/08 [facility] HEMATOLOGY RDW 13.8 % 11.5 - 07/08 14.5 [facility] HEMATOLOGY MCH 32.5 pg 27.0 - 07/08 [facility] 31.0 /2013 [facility] HEMATOLOGY MCHC 33.0 g/dL 32.0 - 07/08 [facility] 36.0 [facility] HEMATOLOGY MPV 10.3 fL 7.4 - 10.4 07/08 [facility] HEMATOLOGY WBC 10.0 K/CMM 3.7 - 10.4 07/08 [facility] HEMATOLOGY MCV 98.4 fL 80.0 - 07/08 [facility] 98.0 /2013 [facility] HEMATOLOGY Hct 33.3 % 36.0 - 07/08 [facility] 48.0 [facility] HEMATOLOGY Hgb 11.0 g/dL 12.0 - 07/08 [facility] 16.0 /2013 [facility] HEMATOLOGY RBC 3.38 M/CMM 4.20 - 07/08 [facility] 5.40 /2013 [facility] URINE AND UA <=1.0 0.1 - 1.0 07/08 [facility] [place] STOOL Urobilinogen mg/dL [facility] URINE AND UA Color Light Yellow Yellow 07/08 [facility] Medical *NA* Center (07/07/14 9:16 PM) URINE AND UA Spec Grav 1.005 <=1.030 07/08 [facility] URINE AND UA Turbidity Clear Clear 07/08 [facility] (07/07/14 9:16 PM) [place] URINE AND UA Glucose Negative Negative 07/08 [facility] mg/dL mg/dL [facility] URINE AND UA pH 6.0 5.0 - 8.0 07/08 [facility] URINE AND UA Protein Negative Negative 07/08 [facility] mg/dL mg/dL [facility] URINE AND UA Mucus Few /LPF None Seen 07/08 [facility] /LPF [facility] URINE AND UA RBC 12 /HPF 0 - 2 07/08 [facility] URINE AND UA WBC 46 /HPF 0 - 5 07/08 [facility] URINE AND UA Ketones Negative Negative 07/08 [facility] mg/dL mg/dL [facility] URINE AND UA Bili Negative Negative 07/08 [facility] Medical *NA* Center (07/07/14 9:16 PM) URINE AND UA Blood Moderate Negative 07/08 [facility] *ABN* [place] (07/07/14 9:16 PM) URINE AND UA Nitrite Negative Negative 07/08 [facility] (07/07/14 9:16 PM) [place] URINE AND UA Leuk Est Large Negative 07/08 [facility] *ABN* Center (07/07/14 9:16 PM) URINE AND UA Sq Epi Few /LPF Few /LPF 07/08 [facility] Chest 1view Chest 1view EXAM: CHEST 1 VIEW 07/08 - [facility] - [facility] DATE: Jul 08, 2014 03:31:00 AM Read by: Linda Lopez MD Dictated Date/time: 07/08/14 07:57 Electronically Signed by: Linda Lopez MD 07/08/14 08:00 FINAL REPORT INDICATION: Fever COMPARISON: July 07, 2014 at 0923 hour TECHNIQUE: Single AP view of the chest FINDINGS: Cardiomediastinal silhouette is stable. The patient is rotated to the right which alters the appearance of the right mediastinum. There is slight increase in vague opacity of periphery of righ t lower lobe concerning for atelectasis versus early infection. Small right effusion blunts right costophrenic recess. There is no additional change. IMPRESSION: 1. Increased vague opacification in periphery of right lower lobe concerning for atelectasis or early infection. 2. Small right effusion. 3. No interval change in right infrahilar linear atelectasis or bronchiectasis 4. Recommend chest 2 view series when feasible . Ext Lower Ext Lower EXAM: US BILATERAL LOWER EXTREMITY VENOUS DOPPLER [facility] Venous Venous - Medical Doppler Doppler Bilat This report was dictated by a Training And Development Head/Fellow. I have personally reviewed the images as Center Bilat US US well as the Resident's interpretation and agree with the findings. DATE: July 07, 2014 at 2149 hours. Read by: Abimbola Rubin MD Resident: Abimbola Rubin MD Dictated Date/time: 07/08/14 08:25 Electronically Signed by: Yunior Negrete MD 07/08/14 11:03 FINAL REPORT INDICATION: 58-year-old female with bilateral lower extremity pain. ADDITIONAL INFORMATION: None. COMPARISON: None available. TECHNIQUE: Multiplanar grayscale, color Doppler and spectral Doppler ultrasound images of the bilateral lower extremity veins were obtained. FINDINGS: The bilateral common femoral, greater saphenous, superficial femoral, and popliteal veins demonstrate normal compressibility and color Doppler signal. IMPRESSION: Negative for bilateral lower extremity deep vein thrombosis. Chest 1view Chest 1view Portable ap semierect chest 07/07/2014. 07/07 - [facility] /2013 - [facility] HISTORY: Pleuritic pain. There are no prior chest radiographs for comment for comparison. Read by: Fe Linares MD Dictated Date/time: 07/07/14 10:09 Electronically Signed by: Fe Linares MD 07/07/14 10:11 FINAL REPORT FINDINGS: The heart is not enlarged. The patient is rotated towards the right posterior comparisons the cardiomediastinal structures to the right. The inferior portion of the cervical thoracic anterior fusion plate and screws are seen. Costophrenic sulci are sharp. The lungs are clear except for some linear atelectasis or tubular bronchiectasis filled with mucus in the right lower lobe behind the heart. CONCLUSION: linear atelectasis or tubular bronchiectasis filled with mucus in the right lower lobe behind the heart. CHEM PANEL eGFR 102 07/07 3Result Comment: The eGFR is calculated using the CKD-EPI formula. In most young, healthy individuals the eGFR will be > 90 mL/min/1.73m2. The eGFR declines with age. An eGFR of 60-89 may be normal in [facility] mL/min/1. some populations, particularly the elderly, for whom the CKD-EPI formula has not been extensively validated. Use of the eGFR is not recommended in the following populations: [place] [address] Center Individuals with unstable creatinine concentrations, including patients and those with serious co-morbid conditions. Patients with extremes in muscle mass or diet. The data above are obtained from the National Kidney Disease Education Program (NKDEP) which additionally recommends that when the eGFR is used in patients with extremes of body mass index for purposes of drug dosing, the eGFR should be multiplied by the estimated BMI. CHEM PANEL Chloride Lvl 109 meq/L 95 - 109 07/07 [facility] CHEM PANEL Calcium Lvl 8.2 mg/dL 8.5 - 10.5 07/07 [facility] CHEM PANEL CO2 25 meq/L 24 - 32 07/07 [facility] CHEM PANEL Glucose Lvl 99 mg/dL 70 - 99 07/07 6Interpretive Data: Adult reference range values reflect the clinical guidelines of the [employer]. [facility] CHEM PANEL BUN 9 mg/dL 7 - 22 07/07 [facility] CHEM PANEL Sodium Lvl 141 meq/L 135 - 145 07/07 [facility] CHEM PANEL Creatinine 0.6 mg/dL 0.5 - 1.4 07/07 [facility] l [facility] CHEM PANEL Potassium Lvl 4.0 meq/L 3.5 - 5.1 07/07 [facility] CHEM PANEL AGAP 11.0 meq/L 10.0 - 07/07 20.0 [facility] CHEM PANEL Phosphorus 3.1 mg/dL 2.5 - 4.5 07/07 [facility] CHEM PANEL Magnesium Lvl 1.8 mg/dL 1.8 - 2.4 07/07 [facility] HEMATOLOGY INR 1.13 0.85 - 07/07 7Interpretive Data: RECOMMENDED RANGES FOR PROTIME INR: [facility] 1. 2.0-3.0 for most medical and surgical thromboembolic states. Medical 2.5-3.5 for artificial heart valves and recurrent embolism. Center INR SHOULD BE USED ONLY FOR PATIENTS ON STABLE ANTICOAGULANT THERAPY. HEMATOLOGY PTT 34.9 s 22.9 - 07/07 9Interpretive [place] 35.8 Data: Heparin [facility] Therapeutic Center Range: 57 - 92 Second[facility] HEMATOLOGY PT 14.6 s 12.0 - 07/07 [facility] 14.7 [facility] HEMATOLOGY MCV 97.6 fL 80.0 - 07/07 [facility] 98.0 /2013 [facility] HEMATOLOGY Hct 32.1 % 36.0 - 07/07 [facility] 48.0 [facility] HEMATOLOGY MCH 33.5 pg 27.0 - 07/07 [facility] 31.0 [facility] HEMATOLOGY Platelet 64 K/CMM 133 - 450 07/07 [facility] HEMATOLOGY RDW 13.5 % 11.5 - 07/07 [facility] 14.5 [facility] HEMATOLOGY Hgb 11.0 g/dL 12.0 - 07/07 [facility] 16.0 /2013 [facility] HEMATOLOGY MPV 10.5 fL 7.4 - 10.4 07/07 [facility] HEMATOLOGY MCHC 34.3 g/dL 32.0 - 07/07 [facility] 36.0 /2013 [facility] HEMATOLOGY RBC 3.28 M/CMM 4.20 - 07/07 5.40 /2013 [facility] HEMATOLOGY WBC 8.7 K/CMM 3.7 - 10.4 07/07 [facility] HEMATOLOGY Basophils 0.1 % 0.0 - 1.0 07/07 [facility] HEMATOLOGY Segs-Bands # 7.2 K/CMM 1.5 - 8.1 07/07 [facility] HEMATOLOGY Monocytes 6.0 % 2.0 - 12.0 07/07 [facility] HEMATOLOGY Monocytes # 0.5 K/CMM 0.0 - 0.8 07/07 [facility] HEMATOLOGY Lymphocytes # 1.0 K/CMM 1.0 - 5.5 07/07 [facility] HEMATOLOGY Lymphocytes 11.4 % 20.0 - 07/07 [place] 40.0 /2013 [facility] HEMATOLOGY Segs 82.5 % 45.0 - 07/07 [facility] 75.0 [facility] PARATHYROID Ca Norm WB 1.10 1.05 - 07/07 [facility] PROFILE mMol/L 1. [facility] PARATHYROID Ca Ion WB 1.11 1.05 - 07/07 [facility] PROFILE mMol/L 1. [facility] BLOOD BANK ABO/Rh O POS 07/06 [facility] RESULTS [facility] BLOOD BANK Antibody Scrn Negative 07/06 [facility] RESULTS Medical (07/06/14 6:00 AM) [place] Brain wo Brain wo EXAM: MRA of the [place]. 06/29 - OPI contrast contrast MRA /2013 - [place] MRA DATE: 06/29/2014 Read by: Vilma Chilel MD Dictated Date/time: 06/30/14 10:19 Electronically Signed by: Vilma Chilel MD 06/30/14 10:37 FINAL REPORT Clinical history: Meningioma. COMPARISON: MRI 06/14/2014. TECHNIQUE: 3D TOF MR angiography of the [place] without contrast was performed in a high field magnet . MIP reconstructions of the intracranial vasculature was performed in different orthogonal planes. DISCUSSION: The intracranial vascular structures are patent with no proximal branch occlusion or flow limiting stenosis. The A1 segment of the left KYLEE is absent versus hypoplastic. No AV malformation. No aneurysms . There is no communication of the well-circumscribed mass along the right side of the anterior interhemispheric fissure with the transiting pericallosal arteries which are slightly displaced towards the left side. IMPRESSION: No aneurysm. 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 HEMATOLOGY Eosinophils # 0.1 K/CMM 0.0 - 0.5 06/14 [facility] HEMATOLOGY Eosinophils 1.3 % 0.0 - 4.0 06/14 [facility] HEMATOLOGY INR 1.07 0.85 - 06/14 8Interpretive Data: RECOMMENDED RANGES FOR PROTIME INR: [facility] 11.12 2.0-3.0 for most medical and surgical thromboembolic states. Medical 2.5-3.5 for artificial heart valves and recurrent embolism. [place] INR SHOULD BE USED ONLY FOR PATIENTS ON STABLE ANTICOAGULANT THERAPY. HEMATOLOGY PTT 34.4 s 22.9 - 06/14 10Interpretiv [facility] 35.8 /2014 e Data: [facility] Therapeutic Range: 57 - 92 Seconds HEMATOLOGY PT 13.8 s 12.0 - 06/14 [facility] 14.7 /2013 [facility] Brain w/wo Brain w/wo EXAM: MRI brain without and with contrast. 06/14 - OPI contrast contrast MRI /2013 - [place] MRI INDICATION: Meningioma. Read by: Dayanara Renteria MD Dictated Date/time: 06/14/14 16:41 Electronically Signed by: Dayanara Renteria MD 06/14/14 16:56 FINAL REPORT COMPARISON: May 10, 2014. TECHNIQUE: Multiecho multiplanar MR sequences of the brain were obtained pre- and postadministration of 13 cc Omni scan. DISCUSSION: Along the interhemispheric fissure projecting into the anterior body of the corpus callosum and intimately involved with the anterior cerebral arteries, a stable ovoid lesion with somewhat s erpiginous internal contour measures 14 mm AP x 12 mm transverse x 12 mm craniocaudal. No edema around the lesion is identified. No significant mass effect. Intrinsic T1 hyperintense signal within the l esion is redemonstrated. Peripheral hemosiderin rim is evident. Postcontrast sequences show some heterogeneous enhancement of the lesion. No other abnormal enhancement of the brain parenchyma or leptomeninges is detected. No hydrocephalus. Stable FLAIR hyperintense signal in the deep white matter compatible with microangiopathic changes. No restricted diffusion. IMPRESSION: Stable size of lesion adjacent to the corpus callosum and intimately involved with the ACAs. 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 Vital Signs Vital Sign Value Date Comments Source BMI Calculated 24.66 06/06/2016 [facility] Weight 57.273 06/06/2016 [facility] Systolic (mm Hg) 119 06/06/2016 [facility] Diastolic (mm Hg) 78 06/06/2016 [facility] Heart Rate 85 06/06/2016 [facility] Temperature Oral (F) 98.1 F 06/06/2016 [facility] Height 152.4 cm 06/06/2016 [facility] Height 152.4 cm 08/10/2015 [facility] BMI Calculated 21.04 08/10/2015 [facility] Weight 48.864 08/10/2015 [facility] Temperature Oral (F) 98.0 F 08/10/2015 [facility] Heart Rate 80 08/10/2015 [facility] Systolic (mm Hg) 123 08/10/2015 [facility] Diastolic (mm Hg) 76 08/10/2015 [facility] Weight 55.511 05/18/2015 [facility] BMI Calculated 23.9 05/18/2015 [facility] Temperature Oral (F) 98.8 F 05/18/2015 [facility] Systolic (mm Hg) 105 05/18/2015 [facility] Diastolic (mm Hg) 70 05/18/2015 [facility] Heart Rate 82 05/18/2015 [facility] Height 152.4 cm 05/18/2015 [facility] Systolic (mm Hg) 128 01/26/2015 [facility] Diastolic (mm Hg) 91 01/26/2015 [facility] Respitory Rate 18 01/26/2015 [facility] Heart Rate 85 01/26/2015 [facility] Weight 60.7 01/26/2015 [facility] Height 152 cm 01/26/2015 [facility] BMI Calculated 26.27 01/26/2015 [facility] Weight 136.8 12/26/2014 [facility] 60 12/26/2014 [facility] Temperature Oral (F) 98.2 F 12/26/2014 [facility] Respitory Rate 16 12/26/2014 [facility] Heart Rate 96 12/26/2014 [facility] Systolic (mm Hg) 141 12/26/2014 [facility] Diastolic (mm Hg) 89 12/26/2014 [facility] Systolic (mm Hg) 156 12/01/2014 [facility] Respitory Rate 18 12/01/2014 [facility] Heart Rate 96 12/01/2014 [facility] Diastolic (mm Hg) 91 12/01/2014 [facility] Weight 63.3 12/01/2014 [facility] BMI Calculated 27.04 12/01/2014 [facility] Height 153 cm 12/01/2014 [facility] Respitory Rate 16 10/11/2014 [facility] Heart Rate 94 10/11/2014 [facility] Respitory Rate 16 10/11/2014 [facility] Systolic (mm Hg) 131 10/11/2014 [facility] Temperature Oral (F) 98.1 F 10/11/2014 [facility] Diastolic (mm Hg) 81 10/11/2014 [facility] Temperature Oral (F) 99.2 F 10/11/2014 [facility] Heart Rate 93 10/11/2014 [facility] Respitory Rate 16 10/11/2014 [facility] Systolic (mm Hg) 147 10/11/2014 [facility] Diastolic (mm Hg) 87 10/11/2014 [facility] Heart Rate 90 10/11/2014 [facility] Temperature Oral (F) 98.1 F 10/11/2014 [facility] Diastolic (mm Hg) 89 10/11/2014 [facility] Systolic (mm Hg) 149 10/11/2014 [facility] BMI Calculated 26.95 10/11/2014 [facility] Weight 62.6 10/11/2014 [facility] Height 152.4 cm 10/11/2014 [facility] Height 170.18 cm 10/10/2014 [facility] Weight 54.545 10/10/2014 [facility] BMI Calculated 18.83 10/10/2014 [facility] Weight 125 07/19/2014 [facility] Height 60 07/19/2014 [facility] Temperature Oral (F) 97.9 F 07/19/2014 [facility] Heart Rate 87 07/19/2014 [facility] Systolic (mm Hg) 130 07/19/2014 [facility] Diastolic (mm Hg) 81 07/19/2014 [facility] Respitory Rate 18 07/09/2014 [facility] Systolic (mm Hg) 128 07/09/2014 [facility] Diastolic (mm Hg) 73 07/09/2014 [facility] Temperature Oral (F) 98.1 F 07/09/2014 [facility] Heart Rate 90 07/09/2014 [facility] Temperature Oral (F) 98.3 F 07/09/2014 [facility] Respitory Rate 18 07/09/2014 [facility] Systolic (mm Hg) 133 07/09/2014 [facility] Heart Rate 84 07/09/2014 [facility] Diastolic (mm Hg) 75 07/09/2014 [facility] Systolic (mm Hg) 109 07/09/2014 [facility] Diastolic (mm Hg) 56 07/09/2014 [facility] Heart Rate 87 07/09/2014 [facility] Temperature Oral (F) 99.1 F 07/09/2014 [facility] Respitory Rate 18 07/09/2014 [facility] Weight 59.091 07/06/2014 [facility] Height 152.4 cm 07/06/2014 [facility] BMI Calculated 25.44 07/06/2014 [facility] Height 60 07/05/2014 [facility] Weight 131.4 07/05/2014 [facility] Temperature Oral (F) 98.6 F 07/05/2014 [facility] Respitory Rate 16 07/05/2014 [facility] Heart Rate 88 07/05/2014 [facility] Systolic (mm Hg) 145 07/05/2014 [facility] Diastolic (mm Hg) 88 07/05/2014 [facility] BMI Calculated 25.44 07/05/2014 [facility] Weight 59.091 07/05/2014 [facility] Height 152.4 cm 07/05/2014 [facility] Weight 124.4 06/20/2014 [facility] Height 60 06/20/2014 [facility] Temperature Oral (F) 98.3 F 06/20/2014 [facility] Respitory Rate 17 06/20/2014 [facility] Heart Rate 84 06/20/2014 [facility] Systolic (mm Hg) 154 06/20/2014 [facility] Diastolic (mm Hg) 83 06/20/2014 [facility] 60 05/10/2014 [facility] Systolic (mm Hg) 134 05/10/2014 [facility] Diastolic (mm Hg) 84 05/10/2014 [facility] Weight 129.4 05/10/2014 [facility] Temperature Oral (F) 99.1 F 05/10/2014 [facility] Respitory Rate 15 05/10/2014 [facility] Heart Rate 88 05/10/2014 [facility] Weight 127 03/14/2014 [facility] Height 60 03/14/2014 [facility] Temperature Oral (F) 96.8 F 03/14/2014 [facility] Heart Rate 86 03/14/2014 [facility] Systolic (mm Hg) 139 03/14/2014 [facility] Diastolic (mm Hg) 85 03/14/2014 [facility] Diastolic (mm Hg) 84 02/24/2014 [facility] Systolic (mm Hg) 156 02/24/2014 [facility] [place] Weight 58.182 02/24/2014 [facility] BMI Calculated 25.05 02/24/2014 [facility] [place] Height 152.4 cm 02/24/2014 [facility] [place] Weight 132.2 02/16/2014 [facility] Height 60 02/16/2014 [facility] Temperature Oral (F) 95.0 F 02/16/2014 [facility] Respitory Rate 18 02/16/2014 [facility] Heart Rate 85 02/16/2014 [facility] Systolic (mm Hg) 137 02/16/2014 [facility] Diastolic (mm Hg) 82 02/16/2014 [facility] Weight 133.4 02/08/2014 [facility] Temperature Oral (F) 98.5 F 02/08/2014 [facility] Respitory Rate 14 02/08/2014 [facility] Heart Rate 80 02/08/2014 [facility] Height 60 02/08/2014 [facility] Systolic (mm Hg) 152 02/08/2014 [facility] Diastolic (mm Hg) 87 02/08/2014 [facility] Weight 130.6 12/27/2013 [facility] Height 60 12/27/2013 [facility] Temperature Oral (F) 97.2 F 12/27/2013 [facility] Respitory Rate 14 12/27/2013 [facility] Heart Rate 96 12/27/2013 [facility] Systolic (mm Hg) 154 12/27/2013 [facility] Diastolic (mm Hg) 92 12/27/2013 [facility] Height 60 12/21/2013 [facility] Weight 126 12/21/2013 [facility] Temperature Oral (F) 98.6 F 12/21/2013 [facility] Respitory Rate 14 12/21/2013 [facility] Heart Rate 76 12/21/2013 [facility] Systolic (mm Hg) 134 12/21/2013 [facility] Diastolic (mm Hg) 86 12/21/2013 [facility] Encounters Location Location Encounter Encounter Reason Attending ADM DC Status Source Details Type Number For Provider Date Date Visit [facility] Outpt Diag [id number] Brent Gorman 05/10 05/11 [facility] Outpt Diag [id number] Brent Gorman 06/14 06/15 [facility] [place] [facility] [place] [facility] Office Visit [id number] Brent Gorman 06/20 06/20 [facility] [id number] MD /2013 [facility] Outpt Diag [id number] Brent Gorman 06/29 06/30 [id number] Brent Gorman 07/06 07/06 [facility] [place] [id number] MD /2013 [facility] Inpatient [id number] Brent Gorman 07/06 07/09 [facility] Office Visit [id number] Brent Gorman 07/19 07/19 [facility] [id number] MD [facility] OBS [id number] Shane 10/10 10/11 [facility] [place] Observation 2 Saj /2013 [facility] [id number] Mickey 12/01 12/02 [facility] 3 [place] [facility] Office Visit [id number] Brent Gorman 12/26 12/26 [facility] [id number] MD /2014 [facility] Outpt Diag [id number] Brayan Gorman 12/26 12/27 [facility] [place] [facility] Outpatient [id number] Mickey 01/26 01/27 [facility] [place] 6 [place] /2014 [facility] Outpatient [id number] Mickey 05/18 05/19 [facility] [place] 7 [place] [facility] Outpt Diag [id number] Mickey 06/09 06/10 [facility] 6 [place] [facility] [place] Outpatient [id number] BRENT GORMAN 07/18 [facility] [id number] BRENT GORMAN 08/08 [facility] Outpatient [id number] Mickey 08/10 08/11 [facility] 8 [place] [facility] [id number] Brent Gorman 08/24 08/25 [facility] [place] [facility] Outpatient [id number] Ronald 06/06 06/07 [facility] [place] 2 [place] /20152016 [facility] Outpt Diag [id number] Ronald 06/28 06/29 [facility] 8 [facility] Procedures Procedure Code Date Perfomer Comments Source smoking/tobacco 14 12/26/2014 no [facility] cessation, patient education and counseling Carpal tunnel [id number] [facility] section [id number] [facility] Operation<sup>1</caceres [id number] wound repair [facility] Tonsillectomy and [id number] [facility] [id number] [facility] [id number] [facility] [place] Operation<sup>1</caceres [id number] wound repair [facility] [place] Tonsillectomy and [id number] [facility] adenoidectomy [place]
--- OUTSIDE RECORDS SUMMARY | 2018-06-20 23:38 | XMS REPORT | Summary of Care ---
:1955 Author Encounter ELADIA Galloway([place]) [id number] Date(s): 12/01/14 - 12/01/[address] Discharge Disposition: Home Physician Attending: Mickey Hernández MD Physician_Referring: Mickey Hernández MD Reason for Visit HEP C Vital Signs Most recent to oldest [Reference Range]: 1 Height 153 cm (12/01/14 3:32 PM) Systolic Blood Pressure [90-140 mmHg] 156 mmHg *HI* (12/01/14 3:32 PM) Diastolic Blood Pressure [60-90 mmHg] 91 mmHg *HI* (12/01/14 3:32 PM) Respiratory Rate [14-20 BRMIN] 18 BRMIN (12/01/14 3:32 PM) Peripheral Pulse Rate [60-100 bpm] 96 bpm (12/01/14 3:32 PM) Weight 63.3 kg (12/01/14 3:32 PM) Body Mass Index 27.04 m2 (12/01/14 3:32 PM) Problem List Condition Effective Dates Status Health Status Informant Brain tumor(Confirmed) Active Cervical stenosis(Confirmed) Active Chronic bronchitis(Confirmed) Resolved COPD(Confirmed) Active Depression(Confirmed) Active Hepatitis C(Confirmed) Active Meningioma(Confirmed) Active Allergies, Adverse Reactions, Alerts Substance Reaction Severity Status Keflex Active Medications Advil PM 2 tab, PO, Bedtime, 0 Refill(s) Start Date: 12/01/14 Status: Orderedaspirin 325 mg tablet 650 mg=2 tab, PO, BID, 0 Refill(s) Start Date: 12/01/14 Status: Orderedlactulose 10 g/15 mL oral syrup 10 gm=15 mL, PO, BID, Please titrate to 2 bowel movements a day, # 1,000 mL, 10 Refill(s), Pharmacy:[id number] Special Instructions: Please titrate to 2 bowel movements a day Start Date: 12/01/14 Stop Date: 10/27/15 Status: OrderedZyrTEC-D oral tablet, extended release 1 tab, PO, BID, 0 Refill(s) Start Date: 12/01/14 Status: Ordered Medications Administered During Your Visit No data available for this section Immunizations Vaccine Date Refusal Reason pneumococcal 23-valent vaccine 07/09/14 Social History Social History Type Response Alcohol Use: Never Smoking Status Current every day smoker, Type: Cigarettes, Exposure to Tobacco Smoke None, Cigarette Smoking Last 365 Days Yes, Reg Smoking Cessation Counseling No
--- OUTSIDE RECORDS SUMMARY | 2018-06-20 23:38 | XMS REPORT | Summary of Care ---
:1955 Author Encounter HQ Katerinar_harley([place]) [id number] Date(s): 12/26/14 - 12/26/14 [facility] Outpatient Imaging [address] [address]- [phone] Discharge Disposition: Home Physician Attending: Brayan Gorman MD Vital Signs No data available for this section Problem List Condition Effective Dates Status Health Status Informant Brain tumor(Confirmed) Active Cervical stenosis(Confirmed) Active Chronic bronchitis(Confirmed) Resolved COPD(Confirmed) Active Depression(Confirmed) Active Hepatitis C(Confirmed) Active Meningioma(Confirmed) Active Allergies, Adverse Reactions, Alerts Substance Reaction Severity Status Keflex Active Medications No data available for this section Results No data available for this section Immunizations Vaccine Date Refusal Reason pneumococcal 23-valent vaccine 07/09/14 Procedures No data available for this section Social History Social History Type Response Alcohol Never Smoking Status Current every day smoker; Type: Cigarettes; Exposure to Tobacco Smoke None; Cigarette Smoking Last 365 Days Yes; Reg Smoking Cessation Counseling No Assessment and Plan No data available for this section
--- OUTSIDE RECORDS SUMMARY | 2018-06-20 23:38 | XMS REPORT | Summary of Care ---
:1955 Author Encounter [facility]) [id number] Date(s): 10/10/14 - 10/11/[address] Discharge Disposition: Home Physician Attending: Shane Tijerina MD Physician Admitting: Shane Tijerina MD Reason for Visit AMS Vital Signs Most recent to oldest 1 2 3 [Reference Range]: Height 152.4 cm 170.18 cm (10/10/14 7:54 PM) (10/10/14 2:20 PM) Temperature Oral 98.1 DegF 99.2 DegF 98.1 DegF [96.4-99.1 DegF] (10/11/14 11:39 AM) *HI* (10/11/14 5:27 AM) (10/11/14 9:08 AM) Systolic Blood Pressure 131 mmHg 147 mmHg 149 mmHg [90-140 mmHg] (10/11/14 11:39 AM) *HI* *HI* (10/11/14 9:08 AM) (10/11/14 5:27 AM) Diastolic Blood Pressure 81 mmHg 87 mmHg 89 mmHg [60-90 mmHg] (10/11/14 11:39 AM) (10/11/14 9:08 AM) (10/11/14 5:27 AM) Respiratory Rate [14-20 16 BRMIN 16 BRMIN 16 BRMIN BRMIN] (10/11/14 12:56 PM) (10/11/14 11:39 AM) (10/11/14 9:08 AM) Peripheral Pulse Rate 94 bpm 93 bpm 90 bpm [60-100 bpm] (10/11/14 11:39 AM) (10/11/14 9:08 AM) (10/11/14 5:27 AM) Weight 62.6 kg 54.545 kg (10/10/14 7:54 PM) (10/10/14 2:20 PM) Body Mass Index 26.95 m2 18.83 m2 (10/10/14 7:54 PM) (10/10/14 2:20 PM) Problem List Condition Effective Dates Status Health Status Informant Brain tumor(Confirmed) Active Cervical stenosis(Confirmed) Active Chronic bronchitis(Confirmed) Resolved COPD(Confirmed) Active Depression(Confirmed) Active Hepatitis C(Confirmed) Active Meningioma(Confirmed) Active Allergies, Adverse Reactions, Alerts Substance Reaction Severity Status Keflex Active Medications lactulose 10 g/15 mL oral syrup 10 gm=15 mL, PO, BID, Please titrate to 2 bowel movements a day, # 900 mL, 2 Refill(s) Special Instructions: Please titrate to 2 bowel movements a day Start Date: 10/11/14 Stop Date: 01/09/15 Status: Orderedlactulose 10 g/15 mL oral syrup 10 gm, 15 mL, Route: PO, Drug Form: SYRP, Dosing Weight 54.545, kg, TID, Start date: 10/11/14 9:00:00, Duration: 30 day, Stop date: 11/09/14 17:00:00 Notes: (Same as:Chronulac) Start Date: 10/11/14 Stop Date: 10/11/14 Status: Canceledlactulose 10 g/15 mL oral syrup 10 gm, 15 mL, Route: PO, Drug Form: SYRP, Dosing Weight 54.545, kg, TID, Start date: 10/11/14 8:00:00, Duration: 30 day, Stop date: 11/09/14 17:00:00 Notes: (Same as:Chronulac) Start Date: 10/11/14 Stop Date: 10/11/14 Status: DiscontinuedLidoderm 5% topical film (patch) 1 patch, TOP, Daily, # 10 patch, 0 Refill(s) Start Date: 10/11/14 Status: OrderedSpiriva 18 mcg inhalation capsule 18 microgram=1 inhalation, INHALATION, RDaily, 0 Refill(s) Start Date: 10/11/14 Status: OrderedSpiriva 18 mcg inhalation capsule 1 ea, Route: INHALATION, Daily, Dosing Weight 62.6, kg, Start date: 10/12/14 9: 00:00, Duration: 30 day, Stop date: 11/10/14 9:00:00 Start Date: 10/12/14 Stop Date: 10/11/14 Status: CanceledSpiriva 18 mcg inhalation capsule 18 microgram, 1 inhalation, Route: INHALATION, Drug form: CAP, RDaily, Dosing Weight 62.6, kg, Startdate: 10/11/14 12:03:00, Stop date: 11/10/14 8:00:00 Notes: (Same As: Spiriva). Start Date: 10/11/14 Stop Date: 10/11/14 Status: Discontinued Results ELECTROLYTES Most recent to oldest [Reference Range]: 1 2 Sodium Lvl [135-145 mEq/L] 141 mEq/L 136 mEq/L (10/11/14 4:14 AM) (10/10/14 2:30 PM) Potassium Lvl [3.5-5.1 mEq/L] 3.6 mEq/L 3.8 mEq/L (10/11/14 4:14 AM) (10/10/14 2:30 PM) Chloride Lvl [95-109 mEq/L] 107 mEq/L 105 mEq/L (10/11/14 4:14 AM) (10/10/14 2:30 PM) CO2 [24-32 mEq/L] 24 mEq/L 25 mEq/L (10/11/14 4:14 AM) (10/10/14 2:30 PM) AGAP [10.0-20.0 mEq/L] 13.6 mEq/L 9.8 mEq/L (10/11/14 4:14 AM) *LOW* (10/10/14 2:30 PM) CHEM PANEL Most recent to oldest [Reference Range]: 1 2 Creatinine Lvl [0.5-1.4 mg/dL] 0.6 mg/dL 0.6 mg/dL (10/11/14 4:14 AM) (10/10/14 2:30 PM) eGFR 101 mL/min/1.73m2 1 101 mL/min/1.73m2 2 *NA* *NA* (10/11/14 4:14 AM) (10/10/14 2:30 PM) BUN [7-22 mg/dL] 9 mg/dL 9 mg/dL (10/11/14 4:14 AM) (10/10/14 2:30 PM) B/C Ratio [6-25] 15 (10/11/14 4:14 AM) Glucose Lvl [70-99 mg/dL] 90 mg/dL 3 97 mg/dL 4 (10/11/14 4:14 AM) (10/10/14 2:30 PM) Total Protein [6.4-8.4 g/dL] 7.1 g/dL 6.8 g/dL (10/11/14 4:14 AM) (10/10/14 2:30 PM) Albumin Lvl [3.5-5.0 g/dL] 3.0 g/dL 2.8 g/dL *LOW* *LOW* (10/11/14 4:14 AM) (10/10/14 2:30 PM) Globulin [2.0-4.0 g/dL] 4.1 g/dL 4.0 g/dL *HI* (10/10/14 2:30 PM) (10/11/14 4:14 AM) A/G Ratio [0.7-1.6] 0.7 0.7 (10/11/14 4:14 AM) (10/10/14 2:30 PM) Calcium Lvl [8.5-10.5 mg/dL] 8.7 mg/dL 8.8 mg/dL (10/11/14 4:14 AM) (10/10/14 2:30 PM) Phosphorus [2.5-4.5 mg/dL] 3.0 mg/dL (10/11/14 4:14 AM) Magnesium Lvl [1.8-2.4 mg/dL] 1.7 mg/dL *LOW* (10/11/14 4:14 AM) ALT [0-65 unit/L] 308 unit/L 298 unit/L *HI* *HI* (10/11/14 4:14 AM) (10/10/14 2:30 PM) AST [0-37 unit/L] 388 unit/L 396 unit/L *HI* *HI* (10/11/14 4:14 AM) (10/10/14 2:30 PM) Alk Phos [39-136 unit/L] 222 unit/L 207 unit/L *HI* *HI* (10/11/14 4:14 AM) (10/10/14 2:30 PM) Bili Total [0.2-1.3 mg/dL] 0.8 mg/dL 0.6 mg/dL (10/11/14 4:14 AM) (10/10/14 2:30 PM) Bili Direct [0.0-0.3 mg/dL] 0.1 mg/dL (10/10/14 2:30 PM) Bili Indirect [0.0-1.0 mg/dL] 0.5 mg/dL (10/10/14 2:30 PM) Ammonia [<=45.0 uMol/L] 54.0 uMol/L *HI* (10/10/14 4:00 PM) Lactic Acid WB [0.5-2.2 mmol/L] 1.3 mmol/L (10/10/14 2:30 PM) 1Result Comment: The eGFR is calculated using the CKD-EPI formula. In most young , healthy individualsthe eGFR will be >90 mL/min/1.73m2. The eGFR declines with age. An eGFR of 60-89 may be normal in some populations, particularly the elderly, for whom the CKD-EPI formula has not been extensively validated. Use of the eGFR is not recommended in the following populations: Individuals with unstable creatinine concentrations, including patients and those with serious co-morbid conditions. Patients with extremes in muscle mass or diet. The data above are obtained from the National Kidney Disease Education Program ( NKDEP) which additionally recommends that when the eGFR is used in patients with extremes of body mass index for purposesof drug dosing, the eGFR should be multiplied by the estimated BMI.2Result Comment: The eGFR is calculated using the CKD-EPI formula. In most young, healthy individualsthe eGFR will be >90 mL/ min/1.73m2. The eGFR declines with age. An eGFR of 60-89 may be normal in some populations, particularly the elderly, for whom the CKD-EPI formula has not been extensively validated. Use of the eGFR is not recommended in the following populations: Individuals with unstable creatinine concentrations, including patients and those with serious co-morbid conditions. Patients with extremes in muscle mass or diet. The data above are obtained from the National Kidney Disease Education Program ( NKDEP) which additionally recommends that when the eGFR is used in patients with extremes of body mass index for purposesof drug dosing, the eGFR should be multiplied by the estimated BMI.3Interpretive Data: Adult reference range values reflect the clinical guidelines of the [place] [employer].4Interpretive Data: Adult reference range values reflect the clinical guidelines of the [place] [employer].THYROID PANEL Most recent to oldest [Reference Range]: 1 2 TSH [0.360-3.740 uIU/mL] 1.290 uIU/mL (10/11/14 4:14 AM) DRUG SCREEN Most recent to oldest [Reference Range]: 1 2 U Amph Scr [Negative] Negative *NA* (10/10/14 2:33 PM) U Susy Scr [Negative] Negative *NA* (10/10/14 2:33 PM) U Benzodia Scr [Negative] Positive *ABN* (10/10/14 2:33 PM) U Cocaine Scr [Negative] Negative *NA* (10/10/14 2:33 PM) U Opiate Scr [Negative] Positive *ABN* (10/10/14 2:33 PM) U Phencyc Scr [Negative] Negative *NA* (10/10/14 2:33 PM) U Cannab Scr [Negative] Positive *ABN* (10/10/14 2:33 PM) UDS Note See Note 5 (10/10/14 2:33 PM) 5Interpretive Data: Drugs reported as positive have not been confirmed by a second method and should be used for medical purposes only. To order confirmation, contact laboratory. note: Below are cut-off concentrations for all urine drugs of abuse performed in the laboratory. Some drugs listed in the table may not be included in this panel. Description Cut-off concentration Amphetamine 1000 ng/mL Barbiturates 200 ng/mL Benzodiazepines 300 ng/mL Cocaine metabolites 300 ng/mL Opiates 300 ng/mL Phencyclidine 25 ng/mL Propoxyphene 300 ng/mL Marijuana metabolites 50 ng/mL Methadone 300 ng/mL Urine alcohol 20 mg/dLTOXICOLOGY Most recent to oldest [Reference Range]: 1 2 Acetaminoph Lvl [10-20 ug/ml] <2 ug/ml *LOW* (10/10/14 3:13 PM) Etoh (%) <0.003 % 6 (10/10/14 3:13 PM) Ethanol Lvl <3.0 mg/dL 7 (10/10/14 3:13 PM) TCA Screen <=299 ng/mL 8 *NA* (10/10/14 3:13 PM) 6Interpretive Data: Ethanol testing results should be used for medical purposes only. Negative Range: <0.003% Toxic Range: >0.25%7Interpretive Data: Negative Range: <3 mg/dL Toxic Range: >250 mg/bP1Fdwryflehmdd Data: Laboratory results of >=300 ng/mL confirmed the presence of TCA.URINE AND STOOL Most recent to oldest [Reference Range]: 1 2 UA Turbidity [Clear] Clear (10/10/14 4:15 PM) UA Color [Yellow] Yellow *NA* (10/10/14 4:15 PM) UA pH [5.0-8.0] 7.0 (10/10/14 4:15 PM) UA Spec Grav [<=1.030] 1.010 (10/10/14 4:15 PM) UA Glucose [Negative mg/dL] Negative mg/dL (10/10/14 4:15 PM) UA Blood [Negative] Negative (10/10/14 4:15 PM) UA Ketones [Negative mg/dL] Negative mg/dL *NA* (10/10/14 4:15 PM) UA Protein [Negative mg/dL] Negative mg/dL (10/10/14 4:15 PM) UA Urobilinogen [0.1-1.0 EU/dL] 0.2 EU/dL (10/10/14 4:15 PM) UA Bili [Negative] Negative *NA* (10/10/14 4:15 PM) UA Leuk Est [Negative] Negative (10/10/14 4:15 PM) UA Nitrite [Negative] Negative (10/10/14 4:15 PM) UA WBC [None Seen /HPF] 0-2 /HPF (10/10/14 4:15 PM) UA RBC [0-2] None Seen (10/10/14 4:15 PM) UA Bacteria [None Seen /HPF] Occasional /HPF (10/10/14 4:15 PM) UA Sq Epi [Few /LPF] Rare /LPF (10/10/14 4:15 PM) UA Amorph Dalia [None Seen /HPF] Occasional /HPF *ABN* (10/10/14 4:15 PM) UA Mucus [None Seen /LPF] Rare /LPF (10/10/14 4:15 PM) Micro? Performed (10/10/14 4:15 PM) HEMATOLOGY Most recent to oldest [Reference Range]: 1 2 WBC [3.7-10.4 K/CMM] 4.9 K/CMM 4.4 K/CMM (10/11/14 4:14 AM) (10/10/14 2:30 PM) RBC [4.20-5.40 M/CMM] 4.16 M/CMM 4.23 M/CMM *LOW* (10/10/14 2:30 PM) (10/11/14 4:14 AM) Hgb [12.0-16.0 g/dL] 13.8 g/dL 13.0 g/dL (10/11/14 4:14 AM) (10/10/14 2:30 PM) Hct [36.0-48.0 %] 39.7 % 39.3 % (10/11/14 4:14 AM) (10/10/14 2:30 PM) MCV [80.0-98.0 fL] 95.5 fL 92.9 fL (10/11/14 4:14 AM) (10/10/14 2:30 PM) MCH [27.0-31.0 pg] 33.1 pg 30.7 pg *HI* (10/10/14 2:30 PM) (10/11/14 4:14 AM) MCHC [32.0-36.0 g/dL] 34.6 g/dL 33.1 g/dL (10/11/14 4:14 AM) (10/10/14 2:30 PM) RDW [11.5-14.5 %] 13.8 % 13.2 % (10/11/14 4:14 AM) (10/10/14 2:30 PM) Platelet [133-450 K/CMM] 73 K/CMM 75 K/CMM *LOW* *LOW* (10/11/14 4:14 AM) (10/10/14 2:30 PM) MPV [7.4-10.4 fL] 10.0 fL 10.2 fL (10/11/14 4:14 AM) (10/10/14 2:30 PM) Segs [45.0-75.0 %] 58.3 % 62.1 % (10/11/14 4:14 AM) (10/10/14 2:30 PM) Lymphocytes [20.0-40.0 %] 30.1 % 27.5 % (10/11/14 4:14 AM) (10/10/14 2:30 PM) Monocytes [2.0-12.0 %] 7.6 % 6.3 % (10/11/14 4:14 AM) (10/10/14 2:30 PM) Eosinophils [0.0-4.0 %] 3.1 % 3.1 % (10/11/14 4:14 AM) (10/10/14 2:30 PM) Basophils [0.0-1.0 %] 0.9 % 1.0 % (10/11/14 4:14 AM) (10/10/14 2:30 PM) Segs-Bands # [1.5-8.1 K/CMM] 2.8 K/CMM 2.8 K/CMM (10/11/14 4:14 AM) (10/10/14 2:30 PM) Lymphocytes # [1.0-5.5 K/CMM] 1.5 K/CMM 1.2 K/CMM (10/11/14 4:14 AM) (10/10/14 2:30 PM) Monocytes # [0.0-0.8 K/CMM] 0.4 K/CMM 0.3 K/CMM (10/11/14 4:14 AM) (10/10/14 2:30 PM) Eosinophils # [0.0-0.5 K/CMM] 0.1 K/CMM 0.1 K/CMM (10/11/14 4:14 AM) (10/10/14 2:30 PM) Basophils # [0.0-0.2 K/CMM] 0.0 K/CMM (10/10/14 2:30 PM) PT [12.0-14.7 seconds] 13.9 seconds (10/11/14 4:14 AM) INR [0.85-1.17] 1.07 9 (10/11/14 4:14 AM) 9Interpretive Data: RECOMMENDED RANGES FOR PROTIME INR: 2.0-3.0 for most medical and surgical thromboembolic states. 2.5-3.5 for artificial heart valves and recurrent embolism. INR SHOULD BE USED ONLY FOR PATIENTS ON STABLE ANTICOAGULANT THERAPY. Medications Administered During Your Visit No data available for this section Immunizations Vaccine Date Refusal Reason pneumococcal 23-valent vaccine 07/09/14 Social History Social History Type Response Alcohol Use: Never Smoking Status Current every day smoker, Type: Cigarettes, Exposure to Tobacco Smoke None, Cigarette Smoking Last 365 Days Yes, Reg Smoking Cessation Counseling Yes Assessment and Plan Extracted from: Title: Medicine Team H Discharge Summary Author: Amber Jacques MD Date: 10/11/14 Discharge Summary Medicine Team H Date of Admission: 10/10/2014 Date of Discharge: 10/11/2014 Admitting Diagnosis: Altered mental status Discharge Diagnosis: Hepatic Encephalopathy, 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 Most of history was obtained from her on admission. Labs were drawn that showed elevated LFTs and ammonia level. Is was thought that patient was possibly suffering from hepatic enceph alopathy. Patient was also found to be positive for opiates, bendzodiazepines and THC in her UDS which possibly contributed to her altered state as well. It was also noted that her home meds included fl exeril, paxil and lyrica and were not hepatically dosed and could have also contributed to her clinical picture. All these medications were discontinued. She was started on lactulose and had 3 bowel mov ements by discharge. Patient and were heavily counseled on refraining for hepatically cleared agents and discontinuing lyrica and flexeril. She was also counseled on alcohol and THC use. Patient acknowledged that she understood. She was oriented x 4 at discharge. Liver ultrasound was also obtained that showed cirrhosis with patent vessels. These findings here shared with the patient and her hu nguyễnand. Patient was given a prescription for lactulose and lidocaine patch for pain control. She was provided with contact numbers for the [facility] hepatology and internal medicine clinics and encouraged to follow up. Physical Exam: GEN: alert and oriented x 4 Head: NC, scare from prior surgery noted without erythema or tenderness Eye: EOMI, DEBBIE, non icteric Neck: soft, no thyromegaly Chest: CTA bilaterally, no rhonchi Heart: RRR, no murmurs Abdomen: soft, distended, +fluid wave, non tender, no hepatomegaly Extremities: upper and lower bilateral extremities movement and strength intact Skin: no erythema, spider hemangioma on chest, left breast tattoo Neuro: no focal deficits, CN intact Psych: appropriate mood and affect Discharge medications: paxil 15mg daily lidocaine patch lactulose 15ml BID spiriva 1 puff daily Follow up Instructions: Provided with the contact info for [facility] hepatology and internal medicine Core Measures: none Discharge Diet: as tolerated Discharge Activity: as tolerated Amber Jacques MD PGY2 [facility] Internal Medicine Addendum by Shane Tijerina MD on 10/11/2014 TEACHING ATTENDING ATTESTATION STATEMENT: 14:38 I have seen & examined this patient on the day of discharge & discussed the findings on this patient in detail with the team on teaching rounds. I have reviewed the DC summary above and I agree with the findings and plan of care outlined by Dr. Jacques with the following additions/ exceptions. Discharged on lactulose. Out pt f/u with hepatology. Counselled on polypharmacy and TCH cessation Extracted from: Title: Team H H&P Author: Amber Jacques MD Date: 10/10/14 History and Physical Medicine Team D CC: lethargy and altered mental status HPI: 59 year old female with PMH of COPD, Hep C, pericallocal aneurysm s/p clipping , and congenital cervical stenosis s/p decompression who presented to the ED from [place] for lethargy and altered ment al status. Per patient's , 2 days ago he found her down in the kitchen non responsive. She was able to come to however she continued to be slow, unable to complete her thoughts or full sentences. Patients also noted that she was unable to complete simple tasks such as feeding herself. He was concerned about her continued lethargy and called ems. Patient was life flighted from [facility] on to [facility] for continuity of care. states that he has not noticed any changes in skin color or abdominal distention. He checks her blood pressure at home which is usually in the 170s systolic s hwoever denies any medications. He states that her last bowel movement was yesterday. He denied any changes in color that he is aware of. Patient unable to answer complex questions. She denied any abd ominal pain. She also denied any recent alcohol use and this was confirmed by the . She also denied any recent changes in skin color or abdominal distention. Both patient and deny any prior history of events similar to this. ROS: GEN: denies weight loss or gain HENT: denies changes in vision or hearing, denies headache RESP: denies SOB, cough CARD: denies chest pain or palpitations GI: denies diarrhea, melena, constipation, abdominal pain : denies dysuria or changes in frequency SKIN: denies chnages in color or rash MUSC: arthritis, denies muscle cramps HEME: denies easy bruising or bleeding PMHx: COPD, Hep C, aneurysm s/p clipping, congenital cord compression FHx: mother with carcinoma of skin, sister with NE at 57 SHx: s/p clipping and decompression, Csection x 4 SocHx: history of tobacco use quit 3 months ago, quit ETOH 2 years ago claims previously a social drinker, denied illicit drug use although positive for THC on admission Allergies: keflex Home Medications: flexeril paxal lyrica nebulizers, albuterol Vitals Tmp(F) Tmp(C) Ttype BP MAP Pulse RR SpO2 FIO2 ETCO2 10/10 18:34 ---- ---- ---- 166/88 --- 84 16 96 --- --- 10/10 16:03 ---- ---- ---- 178/89 --- 86 16 95 --- --- 10/10 14:20 97.6 36.44 oral 152/99 --- 84 16 95 --- --- 24 Hr Tmax: 97.6F (36.44c) at 10/10 14:20 Vital Signs are the last 5 in the past 48 hours. 24 Hr Tmin: 97.6F (36.44c) at 10/10 14:20 Weights are the last 5 in 60 days, plus initial. Date Wt(kg) Wt(lb) Ht(cm) Ht(in) Method BMI BSA 10/10 (initial) 54.55 120.00 Estimated 18.8 1.61 10/10 170.18 67.00 Stated 24 Hr Point of Care Glucoses 10/10 1602 Glucose POC 98 10/10 1434 Glucose POC 78 Most Recent Scores: 10/10/14 [facility] Fall Score 0 10/10/14 NIH Stroke Score 1 10/10/14 [facility] Coma Score 15 Lines, Tubes, and Drains: 10/10/2014 15:07 Peripheral Lines: Hand Left Over the needle catheter (no surgical procedures documented) Physical Exam: GEN: arousable, oriented to place, month, year, person, no distress Head: NC, scare from prior surgery noted without erythema or tenderness Eye: EOMI, DEBBIE, non icteric Neck: soft, no thyromegaly Chest: CTA bilaterally, no rhonchi Heart: RRR, no murmurs Abdomen: soft, distended, +fluid wave, non tender, no hepatomegaly Extremities: upper and lower bilateral extremities movement and strength intact Skin: no erythema, spider hemangioma on chest, left breast tattoo Neuro: no focal deficits, CN intact Psych: appropriate mood and affect Labs: 24hr Labs 10/10 1615 UA Color Yellow UA Turbidity Clear UA Spec Grav 1.010 UA pH 7.0 UA Protein Negative UA Glucose Negative UA Ketones Negative UA Bili Negative UA Blood Negative UA Urobilinogen 0.2 UA Nitrite Negative UA Leuk Est Negative UA RBC None Seen UA WBC 0-2 UA Bacteria Occasional UA Mucus Rare UA Amorph Dalia Occasional UA Sq Epi Rare Micro? Performed 10/10 1602 Glucose POC 98 10/10 1600 Ammonia 54.0 H 10/10 1513 Ethanol Lvl <3.0 Etoh (%) <0.003 Acetaminoph Lvl <2 L 10/10 1434 Glucose POC 78 10/10 1433 U Amph Scr Negative U Susy Scr Negative U Benzodia Scr Positive U Cannab Scr Positive U Cocaine Scr Negative U Opiate Scr Positive U Phencyc Scr Negative UDS Note See Note 12/15 1430 Temp Dick 37.0 pH Dick 7.40 pCO2 Dick 42 pO2 Dick 67 H HCO3 Dick 26 BE Dick 1 O2 Sat Dick 93.0 H Glucose Lvl 97 BUN 9 Creatinine Lvl 0.6 Sodium Lvl 136 Potassium Lvl 3.8 Chloride Lvl 105 CO2 25 AGAP 9.8 L Calcium Lvl 8.8 eGFR 101 Lactic Acid WB 1.3 Total Protein 6.8 Albumin Lvl 2.8 L Bili Total 0.6 Bili Direct 0.1 Bili Indirect 0.5 Alk Phos 207 H AST 396 H ALT 298 H Globulin 4.0 A/G Ratio 0.7 WBC 4.4 RBC 4.23 Hgb 13.0 Hct 39.3 MCV 92.9 MCH 30.7 MCHC 33.1 RDW 13.2 Platelet 75 L MPV 10.2 Segs 62.1 Monocytes 6.3 Lymphocytes 27.5 Eosinophils 3.1 Basophils 1.0 Segs-Bands # 2.8 Lymphocytes # 1.2 Monocytes # 0.3 Eosinophils # 0.1 Basophils # 0.0 Imaging: CT Brain: IMPRESSION: Interval postsurgical changes. No acute intracranial abnormality. CT examination of the brain is unchanged. CXR: no acute abnormalities noted Assesment & Plan 59 year old female with PMH of hep C, aneurysm s/p clipping, cervical stenosis , and COPDwho presented to the ED for altered mental status and lethergy. Patient was found to have elevated LFTs and ammoni a levels. Her UDS was also found to be positive for opiates, benzos and THC. With patients history of Hep C without adequate follow up possible component of hepatic encephalopathy with polypharmacy. Hepatic Encephalopathy - patient's mentation improving per her - elevated LFTs and ammonia level >50 - negative tylenol level - will begin 15ml lactulose and titrate to 2-3 bowel movements a day - continue to monitor patients mentation for improvement - may consider adding rifaximin if mentation does not improve Polypharmacy - UDS positive for benzos and opiates, patient on paxal flexeril and lyrica at home - will hold these medications while in house and see if patient's mentation improves Substance Abuse - UDS positive for THC - will continue to monitor Hep C - previous diagnosis of hepatitis C >10 years ago, patient unable to tell from what - will need good follow up as an outpatient with hepatology - starting lactulose, may consider lasix and spironolactone if blood pressure elevates - liver ultrasound with doppler to assess for cirrhosis - trend LFTs and INR/PT Thrombocytopenia - platelets of 75 on admission, this was also documented in her past admissions - possibly secondary from advanced liver disease - will continue to monitor - again, will need adequate follow up as an outpatient COPD - will continue to monitor - consider adding nebs if needed - current respi status adequate Hx of aneurysm s/p clipping - no acute abnormalities noted on CT of brain - will continue to monitor Prophylaxsis: ambulation Dispo: pending improvement in mentation Amber Jacques MD PGY2 [facility] Internal Medicine Addendum by Shane Tijerina MD on 10/10/2014 TEACHING ATTENDING ATTESTATION STATEMENT: 21:11 I have seen & examined this patient with Dr. Jacques, rest of the team & discussed the findings on this patient in detail with the team on teaching rounds. I have reviewed the note above and I agree with the H & P , findings and plan of care outlined by Dr. Jacques Mental status better than before. Treat with lactulose, avoid medications which cause drowsiness and out pt f/u with Hepatology.
--- OUTSIDE RECORDS SUMMARY | 2018-06-20 23:38 | XMS REPORT | Summary of Care ---
:1955 Author Encounter HQ Martin_harley([place]) [id number] Date(s): 06/29/14 - 06/29/14 [facility] Outpatient Imaging [address] Discharge Disposition: Home Physician Attending: Brent Gorman MD Reason for Visit 225.2 - CHERYL [facility] Problem List Condition Effective Dates Status Health Status Informant Brain tumor(Confirmed) Active Cervical stenosis(Confirmed) Active Chronic bronchitis(Confirmed) Resolved COPD(Confirmed) Active Depression(Confirmed) Active Hepatitis C(Confirmed) Active Meningioma(Confirmed) Active Allergies, Adverse Reactions, Alerts Substance Reaction Severity Status Keflex Active Medications No data available for this section Medications Administered During Your Visit No data available for this section Immunizations No data available for this section Social History Social History Type Response Smoking Status Current every day smoker, Type: Cigarettes, Exposure to Tobacco Smoke None, Cigarette Smoking Last 365 Days Yes, Reg Smoking Cessation Counseling Yes
--- OUTSIDE RECORDS SUMMARY | 2018-06-20 23:38 | XMS REPORT | Summary of Care ---
:1955 Author Organization [facility] Address [address], [place] [address]- Encounter HQ Laverne([place]) [id number] Date(s): 05/18/15 - 05/18/[address] [address]- [employer] Discharge Disposition: Home Attending Physician: Mickey Hernández MD Vital Signs Most recent to oldest [Reference Range]: 1 Height 152.4 cm (05/18/15 10:39 AM) Most recent to oldest [Reference Range]: 1 Temperature Oral [96.4-99.1 DegF] 98.8 DegF (05/18/15 10:39 AM) Most recent to oldest [Reference Range]: 1 Blood Pressure [90-140/60-90 mmHg] 105/70 mmHg (05/18/15 10:39 AM) Most recent to oldest [Reference Range]: 1 Peripheral Pulse Rate [60-100 bpm] 82 bpm (05/18/15 10:39 AM) Most recent to oldest [Reference Range]: 1 Weight 55.511 kg (05/18/15 10:39 AM) Most recent to oldest [Reference Range]: 1 Body Mass Index 23.9 m2 (05/18/15 10:39 AM) Problem List Condition Effective Dates Status Health Status Informant Brain tumor(Confirmed) Active Chronic bronchitis(Confirmed) Resolved COPD(Confirmed) Active Depression(Confirmed) Active Hepatitis C(Confirmed) Active Meningioma(Confirmed) Active Allergies, Adverse Reactions, Alerts Substance Reaction Severity Status Keflex Active Medications Abilify 2 mg oral tablet 2 mg=1 tab, PO, Daily, 0 Refill(s) Start Date: 05/18/15 Status: Ordered Results No data available for this section Immunizations Vaccine Date Refusal Reason pneumococcal 23-valent vaccine 07/09/14 Procedures Procedure Date Related Diagnosis Body Site Carpal tunnel release section Operation1 Tonsillectomy and adenoidectomy 1wound repair Social History Social History Type Response Alcohol Never, Previous treatment: None. Smoking Status Light tobacco smoker; Type: Cigarettes; Exposure to Tobacco Smoke None; Cigarette Smoking Last 365 Days Yes; Reg Smoking Cessation Counseling No Assessment and Plan No data available for this section
--- OUTSIDE RECORDS SUMMARY | 2018-06-20 23:38 | XMS REPORT | Summary of Care ---
:1955 Author Encounter ELADIA Galloway([place]) [id number] Date(s): 06/14/14 - 06/14/14 [facility] Outpatient Imaging [address] Discharge Disposition: Home Physician Attending: Brent Gorman MD Reason for Visit 225.2 - CHERYL NOBEL [facility] Problem List Condition Effective Dates Status Health Status Informant Brain tumor(Confirmed) Active Cervical stenosis(Confirmed) Active Chronic bronchitis(Confirmed) Resolved COPD(Confirmed) Active Depression(Confirmed) Active Hepatitis C(Confirmed) Active Meningioma(Confirmed) Active Allergies, Adverse Reactions, Alerts Substance Reaction Severity Status Keflex Active Medications acetaminophen-hydrocodone 325 mg-10 mg oral tablet 1-2 tab, PO, Q4-6H, Pain, # 30 tab, 0 Refill(s) Start Date: 06/14/14 Stop Date: 06/19/14 Status: OrderedFlexeril 10 mg oral tablet 10 mg=1 tab, PO, TID, for spasm, # 30 tab, 0 Refill(s) Start Date: 06/14/14 Status: OrderedZyrTEC 10 mg oral tablet 10 mg=1 tab, PO, Daily, # 30 tab, 0 Refill(s) Start Date: 06/14/14 Status: Ordered Medications Administered During Your Visit No data available for this section Immunizations No data available for this section Social History Social History Type Response Smoking Status Current every day smoker, Type: Cigarettes, Exposure to Tobacco Smoke None, Cigarette Smoking Last 365 Days Yes, Reg Smoking Cessation Counseling Yes
--- OUTSIDE RECORDS SUMMARY | 2018-06-20 23:38 | XMS REPORT | Summary of Care ---
:1955 Author Encounter ELADIA Galloway([place]) [id number] Date(s): 05/10/14 - 05/10/14 [facility] Outpatient Imaging [address] Discharge Disposition: Home Physician Attending: Brent Gorman MD Reason for Visit 225.2 - CHERYL NOBLE [facility]ERE[facility] Vital Signs Most recent to oldest [Reference Range]: 1 Height 152.4 cm (02/24/14 10:10 AM) Systolic Blood Pressure [90-140 mmHg] 156 mmHg *HI* (02/24/14 10:10 AM) Diastolic Blood Pressure [60-90 mmHg] 84 mmHg (02/24/14 10:10 AM) Weight 58.182 kg (02/24/14 10:10 AM) Body Mass Index 25.05 m2 (02/24/14 10:10 AM) Problem List Condition Effective Dates Status Health Status Informant Brain tumor(Confirmed) Active Cervical stenosis(Confirmed) Active COPD(Confirmed) Active Hepatitis C(Confirmed) Active Allergies, Adverse Reactions, Alerts Substance Reaction [...]
--- OUTSIDE RECORDS SUMMARY | 2018-06-20 23:38 | XMS REPORT | Summary of Care ---
:1955 Author Encounter [facility]) [id number] Date(s): 07/06/14 - 07/09/[address] Discharge Disposition: Home Physician Attending: Brent Gorman MD Physician Admitting: Brent Gorman MD Physician_Referring: Brent Gorman MD Reason for Visit MENINGI[facility] Vital Signs Most recent to oldest 1 2 3 [Reference Range]: Height 152.4 cm 152.4 cm (07/06/14 2:54 PM) (07/05/14 8:26 AM) Temperature Oral [96.4-99.1 98.1 DegF 98.3 DegF 99.1 DegF DegF] (07/09/14 11:06 AM) (07/09/14 8:02 AM) (07/09/14 4:00 AM) Systolic Blood Pressure 128 mmHg 133 mmHg 109 mmHg [90-140 mmHg] (07/09/14 11:06 AM) (07/09/14 8:02 AM) (07/09/14 4:00 AM) Diastolic Blood Pressure 73 mmHg 75 mmHg 56 mmHg [60-90 mmHg] (07/09/14 11:06 AM) (07/09/14 8:02 AM) *LOW* (07/09/14 4:00 AM) Respiratory Rate [14-20 BRMIN] 18 BRMIN 18 BRMIN 18 BRMIN (07/09/14 11:06 AM) (07/09/14 8:02 AM) (07/09/14 4:00 AM) Peripheral Pulse Rate [60-100 90 bpm 84 bpm 87 bpm bpm] (07/09/14 11:06 AM) (07/09/14 8:02 AM) (07/09/14 4:00 AM) Weight 59.091 kg 59.091 kg (07/06/14 2:54 PM) (07/05/14 8:26 AM) Body Mass Index 25.44 m2 25.44 m2 (07/06/14 2:54 PM) (07/05/14 8:26 AM) Problem List Condition Effective Dates Status Health Status Informant Brain tumor(Confirmed) Active Cervical stenosis(Confirmed) Active Chronic bronchitis(Confirmed) Resolved COPD(Confirmed) Active Depression(Confirmed) Active Hepatitis C(Confirmed) Active Meningioma(Confirmed) Active Allergies, Adverse Reactions, Alerts Substance Reaction Severity Status Keflex Active Medications acetaminophen-hydrocodone 325 mg-10 mg oral tablet 1 tab, Route: PO, Drug Form: TAB, Dosing Weight 59.091, kg, Q4H, PRN Pain Score 1-3, Start date: 07/06/14 6:41:00, Duration: 30 day, Stop date: 08/05/14 6:40:00 Notes: Do not exceed 4gm/day of acetaminophen. (Same as: [place] 325/10) Start Date: 07/06/14 Stop Date: 07/07/14 Status: Discontinuedacetaminophen-hydrocodone 325 mg-10 mg oral tablet 2 tab, Route: PO, Drug Form: TAB, Dosing Weight 59.091, kg, Q4H, PRN Pain Score 4-6, Start date: 07/06/14 6:41:00, Duration: 30 day, Stop date: 08/05/14 6:40:00 Notes: Do not exceed 4gm/day of acetaminophen. (Same as: [place] 325/10) Start Date: 07/06/14 Stop Date: 07/07/14 Status: Discontinuedacetaminophen-hydrocodone 325 mg-10 mg oral tablet 1-2 tab, PO, Q4-6H, Pain, # 60 tab, 2 Refill(s) Start Date: 07/08/14 Stop Date: 07/09/14 Status: Discontinuedalbuterol 0.083% inhalation solution 2.49 mg, 3 mL, Route: INHALATION, Drug form: SOLN, Q2H, Dosing Weight 59.091, kg , PRN as needed for wheezing, Start date: 07/07/14 0:12:00, Duration: 30 day, Stop date: 08/06/14 0:11:00 Notes: SEE RT DOCUMENTATION (Same as: Proventil) Start Date: 07/07/14 Stop Date: 07/09/14 Status: DiscontinuedCipro 500 mg oral tablet 500 mg=1 tab, PO, Q12H, # 14 tab, 0 Refill(s) Start Date: 07/08/14 Stop Date: 07/15/14 Status: OrderedCiprodex otic suspension 4 drp, Route: RIGHT EAR, Drug Form: SOLN, Dosing Weight 59.091, kg, Q12H, Start date: 07/07/14 21:00:00, Duration: 30 day, Stop date: 08/06/14 9:00:00 Notes: (Same As: Ciprodex) Start Date: 07/07/14 Stop Date: 07/09/14 Status: Discontinuedciprofloxacin 250 mg, 1 tab, Route: PO, Drug form: TAB, [id number], Dosing Weight 59.091, kg, Priority: NOW, Start date: 07/07/14 22:59:00, Duration: 3 day, Stop date: 10:59:00 Notes: May interfere w/enteral feedings - Take 1 hr before or 2 hrs after antacids, dairy pdt &minerals. On empty stomach. Start Date: 07/07/14 Stop Date: 07/09/14 Status: DiscontinuedColace 100 mg oral capsule 100 mg=1 cap, PO, BID, Constipation, # 100 cap, 0 Refill(s) Start Date: 07/09/14 Status: Ordereddocusate 100 mg, 1 cap, Route: PO, Drug form: CAP, Q12H, Dosing Weight 59.091, kg, Start date: 07/06/14 9:00:00, Duration: 30 day, Stop date: 08/04/14 21:00:00 Notes: (Same as: Colace) (Do Not Crush) Start Date: 07/06/14 Stop Date: 07/09/14 Status: DiscontinuedDuoNeb inhalation solution 3 mL, Route: INHALATION, Drug Form: SOLN, Dosing Weight 59.091, kg, RQ6H, Start date: 07/07/14 2:00:00, Duration: 30 day, Stop date: 08/05/14 20:00:00 Notes: (Same as: Duoneb) Start Date: 07/07/14 Stop Date: 07/09/14 Status: Discontinuedfamotidine 20 mg, 1 tab, Route: PO, Drug form: TAB, Q12H, Dosing Weight 59.091, kg, Start date: 07/06/14 9:00:00, Duration: 30 day, Stop date: 08/04/14 21:00:00 Notes: (Same as: Pepcid) Start Date: 07/06/14 Stop Date: 07/09/14 Status: DiscontinuedfentaNYL 25 microgram, 0.5 mL, Route: IVP, Drug form: INJ, Q5Min, Dosing Weight 59.091, kg, PRN Pain Score 4-6, Start date: 07/06/14 11:30:00, Duration: 4 doses or times, Stop date: 07/07/14 0:00:00 Notes: (Same as: Sublimaze) Preservative free. Start Date: 07/06/14 Stop Date: 07/06/14 Status: DiscontinuedFlexeril 10 mg, 1 tab, Route: PO, Drug form: TAB, TID, Dosing Weight 59.091, kg, PRN Spasm, Start date: 07/07/14 6:47:00, Duration: 30 day, Stop date: 08/06/14 6:46: 00 Notes: (Same As: Flexeril) Start Date: 07/07/14 Stop Date: 07/09/14 Status: DiscontinuedFlexeril 10 mg, 1 tab, Route: PO, Drug form: TAB, TID, Dosing Weight 59.091, kg, PRN Allergies, Start date: 07/06/14 6:38:00, Duration: 30 day, Stop date: 08/05/14 6 :37:00 Notes: (Same As: Flexeril) Start Date: 07/06/14 Stop Date: 07/07/14 Status: Discontinuedflumazenil 0.2 mg, 2 mL, Route: IVP, Drug form: INJ, PRN, Dosing Weight 59.091, kg, PRN Benzodiazepine Reversal, Initial dose, Start date: 07/06/14 11:30:00, Duration: 30 day, Stop date: 08/05/14 11:29:00 Notes: (Same as: Romazicon) Start Date: 07/06/14 Stop Date: 07/06/14 Status: Discontinuedheparin 5,000 unit, 1 mL, Route: SUB-Q, Drug form: INJ, Q12H, Dosing Weight 59.091, kg, Start date: 149:00:00, Stop date: 08/04/14 21:00:00 Notes: porcine heparin Start Date: 07/06/14 Stop Date: 07/07/14 Status: DiscontinuedhydrALAZINE 10 mg, 0.5 mL, Route: IVP, Drug form: INJ, Q20Min, Dosing Weight 59.091, kg, PRN Elevated BP, Start date: 07/06/14 11:30:00, Duration: 2 doses or times, Stop date: 07/07/14 0:00:00 Notes: (Same as: Apresoline)Push over 5 minutes Start Date: 07/06/14 Stop Date: 07/06/14 Status: Discontinuedhydromorphone 0.5 mg, 0.25 mL, Route: IVP, Drug form: INJ, Q3H, Dosing Weight 59.091, kg, PRN Pain Score 7-10, Start date: 07/06/14 6:41:00, Duration: 30 day, Stop date: 08/09 6:40:00 Notes: Same as: Dilaudid Start Date: 07/06/14 Stop Date: 07/09/14 Status: Discontinuedmagnesium sulfate 2 gm, 50 mL, Route: IVPB, Drug form: INJ, ONCE, Start date: 07/07/14 3:00:00, Stop date: 07/07/14 3:00:00 Start Date: 07/07/14 Stop Date: 07/07/14 Status: Completednaloxone 0.04 mg, 0.1 mL, Route: IVP, Drug form: INJ, Q2MIN, Dosing Weight 59.091, kg, PRN Narcotic Reversal,Start date: 07/06/14 11:30:00, Duration: 8 doses or times , Stop date: 07/07/14 0:00:00 Notes: Same as Narcan Start Date: 07/06/14 Stop Date: 07/06/14 Status: Discontinuedondansetron 4 mg, 2 mL, Route: IVP, Drug form: INJ, ONCE, Dosing Weight 59.091, kg, PRN Nausea & Vomiting, Start date: 07/06/14 11:30:00 Notes: (Same as: Zofran) Start Date: 07/06/14 Stop Date: 07/06/14 Status: Discontinuedondansetron 4 mg, 2 mL, Route: IVP, Drug form: INJ, Q8H, Dosing Weight 59.091, kg, PRN Nausea & Vomiting, Start date: 07/06/14 6:41:00, Duration: 30 day, Stop date : 08/05/14 6:40:00 Notes: (Same as: Zofran) Start Date: 07/06/14 Stop Date: 07/09/14 Status: DiscontinuedPaxil 30 mg, 1 tab, Route: PO, Drug form: TAB, Daily, Dosing Weight 59.091, kg, Start date: 07/06/14 9:00:00, Duration: 30 day, Stop date: 08/04/14 9:00:00 Notes: (Same as: Paxil) Start Date: 07/06/14 Stop Date: 07/09/14 Status: Discontinuedpneumococcal 23-valent vaccine 0.5 ml, Route: IM, Drug Form: INJ, Daily, Start date: 07/09/14 12:30:00, Duration: 1 doses or times,Stop date: 07/09/14 12:30:00 Notes: (Same as: Pneumovax 23) Refrigerate Start Date: 07/09/14 Stop Date: 07/09/14 Status: Completedpromethazine 12.5 mg, 0.5 mL, Route: IVPB, Drug form: INJ, Q6H, Dosing Weight 59.091, kg, PRN Nausea & Vomiting, Start date: 07/06/14 6:41:00, Stop date: 08/05/14 6: 40:00 Start Date: 07/06/14 Stop Date: 07/09/14 Status: DiscontinuedSaline Flush 0.9% 5 ml, Route: IVP, Drug Form: INJ, Dosing Weight 59.091, kg, PRN, PRN Line Flush , Start date: 07/06/14 6:41:00, Duration: 30 day, Stop date: 08/05/14 6:40:00 Notes: (Same as: BD Posiflush) Start Date: 07/06/14 Stop Date: 07/09/14 Status: DiscontinuedSaline Flush 0.9% 5 ml, Route: IVP, Drug Form: INJ, Dosing Weight 59.091, kg, Q12H, Start date: 9:00:00, Duration: 30 day, Stop date: 08/04/14 21:00:00 Notes: (Same as: BD Posiflush) Start Date: 07/06/14 Stop Date: 07/09/14 Status: Discontinuedsenna 8.6 mg, 1 tab, Route: PO, Drug Form: TAB, Dosing Weight 59.091, kg, Q12H, Start date: 07/06/14 9:00:00, Duration: 30 day, Stop date: 08/04/14 21:00:00 Notes: (Same as: Senokot) Start Date: 07/06/14 Stop Date: 07/09/14 Status: DiscontinuedSodium Chloride 0.9% IV 1,000 mL 1,000 mL, Rate: 50 ml/hr, Infuse over: 20 hr, Route: IV, Dosing Weight 59.091 kg , Total Volume: 1,000, Start date: 07/06/14 6:41:00, Duration: 30 day, Stop date : 08/05/14 6:40:00 Start Date: 07/06/14 Stop Date: 07/07/14 Status: DiscontinuedTylenol 650 mg, 2 tab, Route: PO, Drug form: TAB, Q6H, Dosing Weight 59.091, kg, PRN For Temp > 100.4 F, Start date: 07/07/14 20:48:00, Duration: 30 day, Stop date: 08/06/14 20:47:00 Notes: Do not exceed 4 gm/day. (Same as: Tylenol) Start Date: 07/07/14 Stop Date: 07/09/14 Status: DiscontinuedTylenol with Codeine #3 oral tablet 2 tab, Route: PO, Drug Form: TAB, Dosing Weight 59.091, kg, Q4H, PRN Pain Score 4-6, Start date: 07/07/14 6:32:00, Duration: 30 day, Stop date: 08/06/14 6:31:00 Notes: Do not exceed 4gm/day of acetaminophen. (Same as: Tylenol with Codeine # 3) Start Date: 07/07/14 Stop Date: 07/09/14 Status: DiscontinuedTylenol with Codeine #3 oral tablet 1 tab, Route: PO, Drug Form: TAB, Dosing Weight 59.091, kg, Q4H, PRN Pain Score 1-3, Start date: 07/07/14 6:32:00, Duration: 30 day, Stop date: 08/06/14 6:31:00 Notes: Do not exceed 4gm/day of acetaminophen. (Same as: Tylenol with Codeine # 3) Start Date: 07/07/14 Stop Date: 07/09/14 Status: DiscontinuedTylenol with Codeine #4 oral tablet See Instructions, Pain, 1 - 2 tab PO Q4H 2 day, # 60 tab, 0 Refill(s) Special Instructions: 1 - 2 tab PO Q4H 2 day Start Date: 07/09/14 Status: Orderedvancomycin 1 gm, Route: IVPB, Drug form: INJ, PRE OP, Start date: 07/06/14 6:00:00, Duration: 1 day, Stop date:07/07/14 5:59:00 Notes: (Same As: Vancocin) Infusion rate< 1000 mg: infuse over 1 [id number] - 1500 mg: infuse over1.5 [id number] - 2000 mg: infuse over 2 hours> 2001 mg: infuse over 2.5 hours Start Date: 07/06/14 Stop Date: 07/09/14 Status: Discontinuedvancomycin 1 gm, Route: IVPB, Drug form: INJ, ONCE, Dosing Weight 59.091, kg, Start date: 07/06/14 8:28:00, Stop date: 07/06/14 8:28:00 Start Date: 07/06/14 Stop Date: 07/06/14 Status: Completedvancomycin (SCIP) 1 gm, Route: IVPB, Drug form: INJ, Q12H, Dosing Weight 59.091, kg, Start date: 07/06/14 21:00:00, Duration: 2 doses or times, Stop date: 07/07/14 9:00:00 Notes: (Same As: Vancocin) Infusion rate< 1000 mg: infuse over 1 [id number] - 1500 mg: infuse over1.5 [id number] - 2000 mg: infuse over 2 hours> 2001 mg: infuse over 2.5 hours Start Date: 07/06/14 Stop Date: 07/07/14 Status: CompletedZofran 4 mg oral tablet 4 mg=1 tab, PO, Q8H, as needed for nausea/vomiting, # 30 tab, 0 Refill(s) Start Date: 07/09/14 Status: OrderedZyrTEC 10 mg, 1 tab, Route: PO, Drug form: TAB, Daily, Dosing Weight 59.091, kg, Start date: 07/06/14 9:00:00, Duration: 30 day, Stop date: 08/04/14 9:00:00 Notes: (Same As: Zyrtec) Start Date: 07/06/14 Stop Date: 07/07/14 Status: DiscontinuedZyrTEC 10 mg, 1 tab, Route: PO, Drug form: TAB, BID, Dosing Weight 59.091, kg, PRN Allergies, Start date: 07/07/14 17:14:00, Duration: 30 day, Stop date: 08/06/14 17:13:00 Notes: (Same As: Zyrtec) Start Date: 07/07/14 Stop Date: 07/09/14 Status: Discontinued Results BLOOD BANK RESULTS Most recent to oldest [Reference Range]: 1 2 3 ABO/Rh O POS *Unknown* (07/06/14 6:00 AM) Antibody Scrn Negative (07/06/14 6:00 AM) ELECTROLYTES Most recent to oldest 1 2 3 [Reference Range]: Sodium Lvl [135-145 mEq/L] 139 mEq/L 140 mEq/L 141 mEq/L (07/09/14 6:42 AM) (07/07/14 9:16 PM) (07/07/14 12:17 AM) Potassium Lvl [3.5-5.1 3.4 mEq/L 3.7 mEq/L 4.0 mEq/L mEq/L] *LOW* (07/07/14 9:16 PM) (07/07/14 12:17 AM) (07/09/14 6:42 AM) Chloride Lvl [95-109 mEq/L] 104 mEq/L 106 mEq/L 109 mEq/L (07/09/14 6:42 AM) (07/07/14 9:16 PM) (07/07/14 12:17 AM) CO2 [24-32 mEq/L] 26 mEq/L 28 mEq/L 25 mEq/L (07/09/14 6:42 AM) (07/07/14 9:16 PM) (07/07/14 12:17 AM) AGAP [10.0-20.0 mEq/L] 12.4 mEq/L 9.7 mEq/L 11.0 mEq/L (07/09/14 6:42 AM) *LOW* (07/07/14 12:17 AM) (07/07/14 9:16 PM) CHEM PANEL Most recent to oldest 1 2 3 [Reference Range]: Creatinine Lvl [0.5-1.4 0.6 mg/dL 0.8 mg/dL 0.6 mg/dL mg/dL] (07/09/14 6:42 AM) (07/07/14 9:16 PM) (07/07/14 12:17 AM) eGFR 102 mL/min/1.73m2 1 82 mL/min/1.73m2 2 102 mL/min/1.73m2 3 *NA* *NA* *NA* (07/09/14 6:42 AM) (07/07/14 9:16 PM) (07/07/14 12:17 AM) BUN [7-22 mg/dL] 8 mg/dL 10 mg/dL 9 mg/dL (07/09/14 6:42 AM) (07/07/14 9:16 PM) (07/07/14 12:17 AM) Glucose Lvl [70-99 mg/dL] 102 mg/dL 4 103 mg/dL 5 99 mg/dL 6 *HI* *HI* (07/07/14 12:17 AM) (07/09/14 6:42 AM) (07/07/14 9:16 PM) Calcium Lvl [8.5-10.5 8.3 mg/dL 8.0 mg/dL 8.2 mg/dL mg/dL] *LOW* *LOW* *LOW* (07/09/14 6:42 AM) (07/07/14 9:16 PM) (07/07/14 12:17 AM) Phosphorus [2.5-4.5 mg/dL] 3.1 mg/dL (07/07/14 12:17 AM) Magnesium Lvl [1.8-2.4 1.8 mg/dL mg/dL] (07/07/14 12:17 AM) 1Result Comment: The eGFR is calculated using [...] eGFR should be multiplied by the estimated BMI.3Result Comment: The eGFR is calculated using the [...] eGFR should be multiplied by the estimated BMI.4Interpretive Data: Adult reference range values reflect the clinical guidelines of the [place] [employer].5Interpretive Data: Adult reference range values reflect the clinical guidelines of the [place] [employer].6Interpretive Data: Adult reference range values reflect the clinical guidelines of the [place] [employer].PARATHYROID PROFILE Most recent to oldest [Reference Range]: 1 2 3 Ca Ion WB [1.05-1.25 mMol/L] 1.11 mMol/L (07/07/14 12:17 AM) Ca Norm WB [1.05-1.25 mMol/L] 1.10 mMol/L (07/07/14 12:17 AM) URINE AND STOOL Most recent to oldest [Reference Range]: 1 2 3 UA Turbidity [Clear] Clear (07/07/14 9:16 PM) UA Color [Yellow] Light Yellow *NA* (07/07/14 9:16 PM) UA pH [5.0-8.0] 6.0 (07/07/14 9:16 PM) UA Spec Grav [<=1.030] 1.005 (07/07/14 9:16 PM) UA Glucose [Negative mg/dL] Negative mg/dL *NA* (07/07/14 9:16 PM) UA Blood [Negative] Moderate *ABN* (07/07/14 9:16 PM) UA Ketones [Negative mg/dL] Negative mg/dL *NA* (07/07/14 9:16 PM) UA Protein [Negative mg/dL] Negative mg/dL (07/07/14 9:16 PM) UA Urobilinogen [0.1-1.0 mg/dL] <=1.0 mg/dL *NA* (07/07/14 9:16 PM) UA Bili [Negative] Negative *NA* (07/07/14 9:16 PM) UA Leuk Est [Negative] Large *ABN* (07/07/14 9:16 PM) UA Nitrite [Negative] Negative (07/07/14 9:16 PM) UA WBC [0-5 /HPF] 46 /HPF *HI* (07/07/14 9:16 PM) UA RBC [0-2 /HPF] 12 /HPF *HI* (07/07/14 9:16 PM) UA Sq Epi [Few /LPF] Few /LPF *NA* (07/07/14 9:16 PM) UA Mucus [None Seen /LPF] Few /LPF *NA* (07/07/14 9:16 PM) HEMATOLOGY Most recent to oldest 1 2 3 [Reference Range]: WBC [3.7-10.4 K/CMM] 8.9 K/CMM 10.0 K/CMM 8.7 K/CMM (07/09/14 6:42 AM) (07/07/14 9:16 PM) (07/07/14 12:17 AM) RBC [4.20-5.40 M/CMM] 3.62 M/CMM 3.38 M/CMM 3.28 M/CMM *LOW* *LOW* *LOW* (07/09/14 6:42 AM) (07/07/14 9:16 PM) (07/07/14 12:17 AM) Hgb [12.0-16.0 g/dL] 12.2 g/dL 11.0 g/dL 11.0 g/dL (07/09/14 6:42 AM) *LOW* *LOW* (07/07/14 9:16 PM) (07/07/14 12:17 AM) Hct [36.0-48.0 %] 35.0 % 33.3 % 32.1 % *LOW* *LOW* *LOW* (07/09/14 6:42 AM) (07/07/14 9:16 PM) (07/07/14 12:17 AM) MCV [80.0-98.0 fL] 96.9 fL 98.4 fL 97.6 fL (07/09/14 6:42 AM) *HI* (07/07/14 12:17 AM) (07/07/14 9:16 PM) MCH [27.0-31.0 pg] 33.6 pg 32.5 pg 33.5 pg *HI* *HI* *HI* (07/09/14 6:42 AM) (07/07/14 9:16 PM) (07/07/14 12:17 AM) MCHC [32.0-36.0 g/dL] 34.7 g/dL 33.0 g/dL 34.3 g/dL (07/09/14 6:42 AM) (07/07/14 9:16 PM) (07/07/14 12:17 AM) RDW [11.5-14.5 %] 13.1 % 13.8 % 13.5 % (07/09/14 6:42 AM) (07/07/14 9:16 PM) (07/07/14 12:17 AM) Platelet [133-450 K/CMM] 73 K/CMM 66 K/CMM 64 K/CMM *LOW* *LOW* *LOW* (07/09/14 6:42 AM) (07/07/14 9:16 PM) (07/07/14 12:17 AM) MPV [7.4-10.4 fL] 10.0 fL 10.3 fL 10.5 fL (07/09/14 6:42 AM) (07/07/14 9:16 PM) *HI* (07/07/14 12:17 AM) Segs [45.0-75.0 %] 76.7 % 77.8 % 82.5 % *HI* *HI* *HI* (07/09/14 6:42 AM) (07/07/14 9:16 PM) (07/07/14 12:17 AM) Lymphocytes [20.0-40.0 %] 15.4 % 14.6 % 11.4 % *LOW* *LOW* *LOW* (07/09/14 6:42 AM) (07/07/14 9:16 PM) (07/07/14 12:17 AM) Monocytes [2.0-12.0 %] 7.2 % 7.0 % 6.0 % (07/09/14 6:42 AM) (07/07/14 9:16 PM) (07/07/14 12:17 AM) Eosinophils [0.0-4.0 %] 0.5 % 0.2 % 1.3 % (07/09/14 6:42 AM) (07/07/14 9:16 PM) (06/14/14 4:55 PM) Basophils [0.0-1.0 %] 0.2 % 0.4 % 0.1 % (07/09/14 6:42 AM) (07/07/14 9:16 PM) (07/07/14 12:17 AM) Segs-Bands # [1.5-8.1 K/CMM] 6.8 K/CMM 7.8 K/CMM 7.2 K/CMM (07/09/14 6:42 AM) (07/07/14 9:16 PM) (07/07/14 12:17 AM) Lymphocytes # [1.0-5.5 1.4 K/CMM 1.5 K/CMM 1.0 K/CMM K/CMM] (07/09/14 6:42 AM) (07/07/14 9:16 PM) (07/07/14 12:17 AM) Monocytes # [0.0-0.8 K/CMM] 0.6 K/CMM 0.7 K/CMM 0.5 K/CMM (07/09/14 6:42 AM) (07/07/14 9:16 PM) (07/07/14 12:17 AM) Eosinophils # [0.0-0.5 0.1 K/CMM K/CMM] (06/14/14 4:55 PM) PT [12.0-14.7 seconds] 14.6 seconds 13.8 seconds (07/07/14 12:17 AM) (06/14/14 4:55 PM) INR [0.85-1.17] 1.13 7 1.07 8 (07/07/14 12:17 AM) (06/14/14 4:55 PM) PTT [22.9-35.8 seconds] 34.9 seconds 9 34.4 seconds 10 (07/07/14 12:17 AM) (06/14/14 4:55 PM) 7Interpretive Data: RECOMMENDED RANGES FOR PROTIME INR: 2.0-3.0 for most medical and surgical thromboembolic states. 2.5-3.5 for artificial heart valves and recurrent embolism. INR SHOULD BE USED ONLY FOR PATIENTS ON STABLE ANTICOAGULANT THERAPY.8Interpretive Data: RECOMMENDED RANGES FOR PROTIME INR: 2.0-3.0 for most medical and surgical thromboembolic states. 2.5-3.5 for artificial heart valves and recurrent embolism. INR SHOULD BE USED ONLY FOR PATIENTS ON STABLE ANTICOAGULANT THERAPY.9Interpretive Data: Heparin Therapeutic Range: 57 - 92 [id number] Data: Heparin Therapeutic Range: 57 - 92 Seconds Medications Administered During Your Visit No data available for this section Immunizations Vaccine Date Refusal Reason pneumococcal 23-valent vaccine 07/09/14 Social History Social History Type Response Smoking Status Current every day smoker, Type: Cigarettes, Exposure to Tobacco Smoke None, Cigarette Smoking Last 365 Days Yes, Reg Smoking Cessation Counseling Yes Assessment and Plan Extracted from: Title: ENT Problem Admission H&P * Author: Olive Grewal Date : 07/07/14 MD Impression and Plan 58 yo female, PMH known right TM perforation, thrombocytopenia, who was instrumenting her ear last night, resulting in right bloody otorrhea - examination shows lacerated right ear canal skin. There is no active bleeding. Because of the history of ear instrumentation and wax impaction on the left side, placement of a wick or further instrumentation of the ears without adequate visualization may result in iatrogenic damage to the underlying canal skin and/or tympanic membrane on the right side. 1. Recommend Ciprodex to the right ear BID for 2 weeks; Recommend debrox drops at night for the left ear. 2. Follow up with ENT in 2 weeks [phone] for exam and microotoscopy if needed. 3. Counseled patient against use of cotton swabs to clean her ears. 4. Will discuss with attending.
--- OUTSIDE RECORDS SUMMARY | 2018-06-20 23:39 | XMS REPORT | Summary of Care ---
:1955 Author Organization [facility] Address [address] [place], [place] [address]- Encounter HQ Katerinar_harley(FIN) [id number] Date(s): 06/06/16 - 06/06/16 [facility] [address] [place] [phone] Discharge Disposition: Home or Self Care Attending Physician: Ronald Caal MD Referring Physician: Ronald Caal MD Vital Signs Most recent to oldest [Reference Range]: 1 Height 152.4 cm (06/06/16 12:38 PM) Temperature Oral [96.4-99.1 DegF] 98.1 DegF (06/06/16 12:38 PM) Blood Pressure [90-140/60-90 mmHg] 119/78 mmHg (06/06/16 12:38 PM) Peripheral Pulse Rate [60-100 bpm] 85 bpm (06/06/16 12:38 PM) Weight 57.273 kg (06/06/16 12:38 PM) Body Mass Index 24.66 m2 (06/06/16 12:38 PM) Problem List Condition Effective Dates Status Health Status Informant Ascites(Confirmed) Active Benign neoplasm of meninges1, 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 Allergies, Adverse Reactions, Alerts Substance Reaction Severity Status cephalexin1 Active Keflex Active 1Data migrated from [employer] on 06/19/15. Originally documented as KEFLEX. Medications aspirin 325 mg tablet 325 mg=1 tab, PO, Daily, 0 Refill(s) Start Date: 06/06/16 Status: Orderedfurosemide 40 mg oral tablet 40 mg=1 tab, PO, Daily, 0 Refill(s) Start Date: 06/06/16 Status: OrderedhydrOXYzine hydrochloride 25 mg oral tablet 25 mg=1 tab, PO, TID, 0 Refill(s) Start Date: 06/06/16 Status: Orderedlactulose 10 g/15 mL oral syrup 20 gm=30 mL, PO, BID, X 30 day, # 1800 mL, 6 Refill(s), Pharmacy: [id number] Start Date: 06/06/16 Stop Date: 01/02/17 Status: Orderedspironolactone 50 mg oral tablet 50 mg=1 tab, PO, BID, 0 Refill(s) Start Date: 06/06/16 Status: Ordered Results No data available for this section Immunizations Given and Recorded Vaccine Date Status Refusal Reason pneumococcal 23-valent vaccine 07/09/14 Given Procedures Procedure Date Related Diagnosis Body Site [...]
--- OUTSIDE RECORDS SUMMARY | 2018-06-20 23:39 | XMS REPORT | Summary of Care ---
:1955 Author Organization [facility] [place] Address [address] [place], [place] [address]- Encounter HQ Encntr_alilong(FIN) [id number] Date(s): 06/09/15 - 06/09/15 [facility] [place] [address] [place] [phone]- [phone] Discharge Disposition: Home Attending Physician: Mickey Hernández MD Vital Signs No data available for [...]
--- OUTSIDE RECORDS SUMMARY | 2018-06-20 23:39 | XMS REPORT | Continuity of Care Document ---
:1955 Author Organization [facility] Care Team Providers Name Role Phone Brent Gorman MD Unavailable Unavailable Insurance Providers Payer name Policy type / Coverage Policy ID Covered alliance party ID Policy [place] type AETNA - MEBS - CHOICE - NAP (POS II) AETNA - CHOICE (POS II) AETNA - MEBS - CHOICE - NAP (POS II) AETNA - MEBS - CHOICE - NAP (POS II) AETNA - MEBS - CHOICE - NAP (POS II) AETNA - MEBS - CHOICE - NAP (POS II) AETNA - MEBS - CHOICE - NAP (POS II) AETNA - MEBS - CHOICE - NAP (POS II) AETNA - MEBS - CHOICE - NAP (POS II) AETNA - MEBS - CHOICE - NAP (POS II) AETNA - MEBS - CHOICE - NAP (POS II) AETNA - MEBS - CHOICE - NAP (POS II) AETNA - MEBS - CHOICE - NAP (POS II) AETNA - MEBS - CHOICE - NAP (POS II) AETNA - MEBS - CHOICE - NAP (POS II) AETNA - MEBS - CHOICE - NAP (POS II) AETNA - MEBS - CHOICE - NAP (POS II) AETNA - MEBS - CHOICE - NAP (POS II) AETNA - MEBS - CHOICE - NAP (POS II) AETNA - MEBS - CHOICE - NAP (POS II) AETNA - MEBS - CHOICE - NAP (POS II) AETNA - MEBS - CHOICE - NAP (POS II) AETNA - MEBS - CHOICE - NAP (POS II) AETNA - MEBS - CHOICE - NAP (POS II) AETNA - MEBS - CHOICE - NAP (POS II) AETNA - MEBS - CHOICE - NAP (POS II) AETNA - MEBS - CHOICE - NAP (POS II) AETNA - MEBS - CHOICE - NAP (POS II) AETNA - MEBS - CHOICE - NAP (POS II) AETNA - MEBS - CHOICE - NAP (POS II) AETNA - MEBS - CHOICE - NAP (POS II) AETNA - MEBS - CHOICE - NAP (POS II) AETNA - MEBS - CHOICE - NAP (POS II) AETNA - MEBS - CHOICE - NAP (POS II) AETNA - MEBS - CHOICE - NAP (POS II) AETNA - MEBS - CHOICE - NAP (POS II) AETNA - MEBS - CHOICE - NAP (POS II) AETNA - MEBS - CHOICE - NAP (POS II) AETNA - MEBS - CHOICE - NAP (POS II) AETNA - MEBS - CHOICE - NAP (POS II) AETNA - MEBS - CHOICE - NAP (POS II) AETNA - MEBS - CHOICE - NAP (POS II) AETNA - MEBS - CHOICE - NAP (POS II) AETNA - MEBS - CHOICE - NAP (POS II) AETNA - MEBS - CHOICE - NAP (POS II) AETNA - MEBS - CHOICE - NAP (POS II) AETNA - MEBS - CHOICE - NAP (POS II) AETNA - MEBS - CHOICE - NAP (POS II) AETNA - MEBS - CHOICE - NAP (POS II) AETNA - MEBS - CHOICE - NAP (POS II) Encounters Encounter Performer Location Date Office Visit Brent Gorman MD [facility] [place] Jul 19, 2014 Allergies, Adverse Reactions, Alerts Type Substance Reaction Status Drug allergy KEFLEX Active Problems Problem Effective Dates Problem Status NEOPLASM UNCERTAIN BEHAVIOR BRAIN&SPINAL CORD Active CERVICAL RADICULOPATHY Dec 27, 2013 Active CERVICAL PAIN Dec 28, 2013 Active CERVICAL RADICULITIS Dec 28, 2013 Active MENINGIOMA Active CERVICAL SPINAL STENOSIS Feb 20, 2014 Active CERVICAL DISC DISORDER W/MYELO Feb 20, 2014 Active FH DIABETES May 10, 2014 Active MENINGIOMA May 25, 2014 Active CEREBRAL ANEURYSM, NON RUPTURED Jul 19, 2014 Active Procedures Date Description Comments Dec 21, 2013 smoking status current every day smoker Dec 27, 2013 smoking status current every day smoker May 10, 2014 smoking status Current every day smoker Jul 05, 2014 smoking status Current every day smoker Jul 19, 2014 smoking status Current every day smoker Medications Medication Instructions Start Date Status PAXIL 30MG 1 po daily Dec 21, 2013 Active FLEXERIL prn Feb 08, 2014 Active NORCO 10-325 MG TABS 1-2 po q 4-6 hours prn pain March 09, 2014 Inactive CYCLOBENZAPRINE HCL 10 MG TABS 1 po tid prn muscle spasm March 09, 2014 Inactive ULTRAM 50 MG TABS take 1-2 tabs every 4-6 hrs Feb 16, 2014 Active prn pain CYCLOBENZAPRINE HCL 5 MG TABS take one tab every 8hrs prn Feb 16, 2014 Inactive muscle spasm NORCO 10-325 MG TABS 1-2 tablets po every 8 hours Apr 04, 2014 Inactive as needed for pain HYDROCODONE-ACETAMINOPHEN 10-325 po bid Jun 20, 2014 Active MG TABS TRAMADOL HCL 50 MG TABS take one pill every 6-8 hours Jul 13, 2014 Active prn pain Vital Signs Date Description Test Result Dec 21, 2013 height E& - 8302-2 HEIGHT 60 in Dec 21, 2013 weight E& - 3141-9 WEIGHT 126 lb Dec 21, 2013 temperature E&M TEMPERATURE 98.6 deg f Dec 21, 2013 respiratory rate E&M - 9279-1 RESP RATE 14 /min Dec 21, 2013 pulse rate E&M - 8867-4 PULSE RATE 76 /min Dec 21, 2013 blood pressure, systolic - 8480-6 BP SYSTOLIC 134 mm Hg Dec 21, 2013 blood pressure, diastolic - 8462-4 BP DIASTOLIC 86 mm Hg Dec 27, 2013 weight E&M - 3141-9 WEIGHT 130.6 lb Dec 27, 2013 height E& - 83022 HEIGHT 60 in Dec 27, 2013 temperature E&M TEMPERATURE 97.2 deg f Dec 27, 2013 respiratory rate E&M - 9279-1 RESP RATE 14 /min Dec 27, 2013 pulse rate E&M - 8867-4 PULSE RATE 96 /min Dec 27, 2013 blood pressure, systolic - 8480-6 BP SYSTOLIC 154 mm Hg Dec 27, 2013 blood pressure, diastolic - 8462-4 BP DIASTOLIC 92 mm Hg Feb 08, 2014 weight E&M - 3141-9 WEIGHT 133.4 lb Feb 08, 2014 temperature E&M TEMPERATURE 98.5 deg f Feb 08, 2014 respiratory rate E&M - 9279-1 RESP RATE 14 /min Feb 08, 2014 pulse rate E&M - 8867-4 PULSE RATE 80 /min Feb 08, 2014 height E&M - 8302-2 HEIGHT 60 in Feb 08, 2014 blood pressure, systolic - 8480-6 BP SYSTOLIC 152 mm Hg Feb 08, 2014 blood pressure, diastolic - 8462-4 BP DIASTOLIC 87 mm Hg Feb 16, 2014 weight E&M - 3141-9 WEIGHT 132.2 lb Feb 16, 2014 height E&M - 8302-2 HEIGHT 60 in Feb 16, 2014 temperature E&M TEMPERATURE 95.0 deg f Feb 16, 2014 respiratory rate E&M - 9279-1 RESP RATE 18 /min Feb 16, 2014 pulse rate E&M - 8867-4 PULSE RATE 85 /min Feb 16, 2014 blood pressure, systolic - 8480-6 BP SYSTOLIC 137 mm Hg Feb 16, 2014 blood pressure, diastolic - 8462-4 BP DIASTOLIC 82 mm Hg March 14, 2014 weight E&M - 3141-9 WEIGHT 127 lb March 14, 2014 height E&M - 8302-2 HEIGHT 60 in March 14, 2014 temperature E&M TEMPERATURE 96.8 deg f March 14, 2014 pulse rate E&M - 8867-4 PULSE RATE 86 /min March 14, 2014 blood pressure, systolic - 8480-6 BP SYSTOLIC 139 mm Hg March 14, 2014 blood pressure, diastolic - 8462-4 BP DIASTOLIC 85 mm Hg May 10, 2014 height E&M - 8302-2 HEIGHT 60 in May 10, 2014 blood pressure, systolic - 8480-6 BP SYSTOLIC 134 mm Hg May 10, 2014 blood pressure, diastolic - 8462-4 BP DIASTOLIC 84 mm Hg May 10, 2014 weight E&M - 3141-9 WEIGHT 129.4 lb May 10, 2014 temperature E&M TEMPERATURE 99.1 deg f May 10, 2014 respiratory rate E&M - 9279-1 RESP RATE 15 /min May 10, 2014 pulse rate E&M - 8867-4 PULSE RATE 88 /min Jun 20, 2014 weight E&M - 3141-9 WEIGHT 124.4 lb Jun 20, 2014 height E&M - 8302-2 HEIGHT 60 in Jun 20, 2014 temperature E&M TEMPERATURE 98.3 deg f Jun 20, 2014 respiratory rate E&M - 9279-1 RESP RATE 17 /min Jun 20, 2014 pulse rate E&M - 8867-4 PULSE RATE 84 /min Jun 20, 2014 blood pressure, systolic - 8480-6 BP SYSTOLIC 154 mm Hg Jun 20, 2014 blood pressure, diastolic - 8462-4 BP DIASTOLIC 83 mm Hg Jul 05, 2014 height E&M - 8302-2 HEIGHT 60 in Jul 05, 2014 weight E&M - 3141-9 WEIGHT 131.4 lb Jul 05, 2014 temperature E&M TEMPERATURE 98.6 deg f Jul 05, 2014 respiratory rate E&M - 9279-1 RESP RATE 16 /min Jul 05, 2014 pulse rate E&M - 8867-4 PULSE RATE 88 /min Jul 05, 2014 blood pressure, systolic - 8480-6 BP SYSTOLIC 145 mm Hg Jul 05, 2014 blood pressure, diastolic - 8462-4 BP DIASTOLIC 88 mm Hg Jul 19, 2014 weight E&M - 3141-9 WEIGHT 125 lb Jul 19, 2014 height E&M - 8302-2 HEIGHT 60 in Jul 19, 2014 temperature E&M TEMPERATURE 97.9 deg f Jul 19, 2014 pulse rate E&M - 8867-4 PULSE RATE 87 /min Jul 19, 2014 blood pressure, systolic - 8480-6 BP SYSTOLIC 130 mm Hg Jul 19, 2014 blood pressure, diastolic - 8462-4 BP DIASTOLIC 81 mm Hg
--- OUTSIDE RECORDS SUMMARY | 2018-06-20 23:39 | XMS REPORT | Summary of Care ---
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 Allergies, Adverse Reactions, Alerts Substance Reaction Severity Status cephalexin1 Active Keflex Active 1Data migrated from [employer] on 06/19/15. Originally documented as KEFLEX. Medications No data available for this section [...]
--- OUTSIDE RECORDS SUMMARY | 2018-06-20 23:39 | XMS REPORT | Summary of Care ---
:1955 Author Organization [facility] [place] Address [address] [place], [place] [address]- Encounter HQ Katerinar_harley(FIN) [id number] Date(s): 06/28/16 - 06/28/16 [facility] [place] [address] [place] [address]- [phone] Discharge Disposition: Home or Self Care Attending Physician: Ronald Caal MD Vital Signs No data available for [...]
--- OUTSIDE RECORDS SUMMARY | 2018-06-20 23:39 | XMS REPORT | Summary of Care ---
:1955 Author Organization [facility] Address [address] [place], [place] [address]- Encounter HQ Laverne(ISRAEL) [id number] Date(s): 08/10/15 - 08/10/[address] [address] [employer] Discharge Disposition: Home Attending Physician: Mickey Hernández MD Vital Signs Most recent to oldest [Reference Range]: 1 Height 152.4 cm (08/10/15 11:27 AM) Most recent to oldest [Reference Range]: 1 Temperature Oral [96.4-99.1 DegF] 98.0 DegF (08/10/15 11:27 AM) Most recent to oldest [Reference Range]: 1 Blood Pressure [90-140/60-90 mmHg] 123/76 mmHg (08/10/15 11:27 AM) Most recent to oldest [Reference Range]: 1 Peripheral Pulse Rate [60-100 bpm] 80 bpm (08/10/15 11:27 AM) Most recent to oldest [Reference Range]: 1 Weight 48.864 kg (08/10/15 11:27 AM) Most recent to oldest [Reference Range]: 1 Body Mass Index 21.04 m2 (08/10/15 11:27 AM) Problem List Condition Effective Dates Status [...] on 06/19/15. Originally documented as KEFLEX. Medications Flexeril PO, TID, 0 Refill(s) Start Date: 08/10/15 Status: OrderedNebulizer 1 ea, MISC, ONCALL, # 1 ea, 0 Refill(s) Start Date: 08/10/15 Status: Orderedribavirin See Instructions, 400 mg in AM 600 mg in PM, 0 Refill(s) Special Instructions: 400 mg in AM600 mg in PM Start Date: 08/10/15 Status: Orderedsofosbuvir 400 mg, PO, Daily, 0 Refill(s) Start Date: 08/10/15 Status: Ordered Results No data available for [...]
--- OUTSIDE RECORDS SUMMARY | 2018-06-20 23:39 | XMS REPORT | Continuity of Care Document ---
:1955 Author Organization [facility] Care Team Providers Name Role Phone Brent Gorman MD Unavailable Unavailable Insurance Providers Payer name Policy type / Coverage Policy ID Covered libertarian ID Policy [place] type AETNA - MEBS - CHOICE - [...] Location Date Office Visit Brent Gorman MD [facility] [place] Jun 20, 2014 Allergies, Adverse Reactions, Alerts Type Substance [...] 2014 Active MENINGIOMA May 25, 2014 Active Procedures Date Description Comments Dec [...] bid Jun 20, 2014 Active MG TABS Vital Signs Date Description Test Result Dec 21, 2013 height E&M HEIGHT 60 in Dec 21, 2013 weight E&M WEIGHT 126 lb Dec 21, 2013 temperature E&M TEMPERATURE 98.6 deg f Dec 21, 2013 respiratory rate E&M RESP RATE 14 /min Dec 21, 2013 pulse rate E&M PULSE RATE 76 /min Dec 21, 2013 blood pressure, systolic BP SYSTOLIC 134 mm Hg Dec 21, 2013 blood pressure, diastolic BP DIASTOLIC 86 mm Hg Dec 27, 2013 weight E&M WEIGHT 130.6 lb Dec 27, 2013 height E&M HEIGHT 60 in Dec 27, 2013 temperature E&M TEMPERATURE 97.2 deg f Dec 27, 2013 respiratory rate E&M RESP RATE 14 /min Dec 27, 2013 pulse rate E&M PULSE RATE 96 /min Dec 27, 2013 blood pressure, systolic BP SYSTOLIC 154 mm Hg Dec 27, 2013 blood pressure, diastolic BP DIASTOLIC 92 mm Hg Feb 08, 2014 weight E&M WEIGHT 133.4 lb Feb 08, 2014 temperature E&M TEMPERATURE 98.5 deg f Feb 08, 2014 respiratory rate E&M RESP RATE 14 /min Feb 08, 2014 pulse rate E&M PULSE RATE 80 /min Feb 08, 2014 height E&M HEIGHT 60 in Feb 08, 2014 blood pressure, systolic BP SYSTOLIC 152 mm Hg Feb 08, 2014 blood pressure, diastolic BP DIASTOLIC 87 mm Hg Feb 16, 2014 weight E&M WEIGHT 132.2 lb Feb 16, 2014 height E&M HEIGHT 60 in Feb 16, 2014 temperature E&M TEMPERATURE 95.0 deg f Feb 16, 2014 respiratory rate E&M RESP RATE 18 /min Feb 16, 2014 pulse rate E&M PULSE RATE 85 /min Feb 16, 2014 blood pressure, systolic BP SYSTOLIC 137 mm Hg Feb 16, 2014 blood pressure, diastolic BP DIASTOLIC 82 mm Hg March 14, 2014 weight E&M WEIGHT 127 lb March 14, 2014 height E&M HEIGHT 60 in March 14, 2014 temperature E&M TEMPERATURE 96.8 deg f March 14, 2014 pulse rate E&M PULSE RATE 86 /min March 14, 2014 blood pressure, systolic BP SYSTOLIC 139 mm Hg March 14, 2014 blood pressure, diastolic BP DIASTOLIC 85 mm Hg May 10, 2014 height E&M HEIGHT 60 in May 10, 2014 blood pressure, systolic BP SYSTOLIC 134 mm Hg May 10, 2014 blood pressure, diastolic BP DIASTOLIC 84 mm Hg May 10, 2014 weight E&M WEIGHT 129.4 lb May 10, 2014 temperature E&M TEMPERATURE 99.1 deg f May 10, 2014 respiratory rate E&M RESP RATE 15 /min May 10, 2014 pulse rate E&M PULSE RATE 88 /min Jun 20, 2014 weight E&M WEIGHT 124.4 lb Jun 20, 2014 height E&M HEIGHT 60 in Jun 20, 2014 temperature E&M TEMPERATURE 98.3 deg f Jun 20, 2014 respiratory rate E&M RESP RATE 17 /min Jun 20, 2014 pulse rate E&M PULSE RATE 84 /min Jun 20, 2014 blood pressure, systolic BP SYSTOLIC 154 mm Hg Jun 20, 2014 blood pressure, diastolic BP DIASTOLIC 83 mm Hg
--- OUTSIDE RECORDS SUMMARY | 2018-06-20 23:40 | XMS REPORT | Continuity of Care Document ---
:1955 Author Organization [facility] Care Team Providers Name Role Phone Brent Gorman MD Unavailable Unavailable Insurance Providers Payer name Policy type / Coverage Policy ID Covered constitution party ID Policy [place] type AETNA - MEBS [...] (POS II) Encounters Encounter Performer Location Date Lab Report Brent Gorman MD [facility] [place] [facility] [place] Jul 06, 2014 Allergies, Adverse Reactions, Alerts Type Substance [...] Test Result Dec 21, 2013 height E&M - 8302-2 HEIGHT 60 in Dec 21, 2013 weight E&M - 3141-9 WEIGHT 126 lb Dec 21, [...] 130.6 lb Dec 27, 2013 height E&M - 8302-2 HEIGHT 60 in Dec 27, 2013 temperature [...] 82 mm Hg March 14, 2014 weight Ceferino&Ada - 3141-9 WEIGHT 127 lb March 14, [...] 84 mm Hg May 10, 2014 weight Ceferino&Ada - 3141-9 WEIGHT 129.4 lb May 10, 2014 temperature E&M TEMPERATURE 99.1 deg f May 10, 2014 respiratory rate E&M - 9279-1 RESP RATE 15 /min May 10, 2014 pulse rate E&M - 8867-4 PULSE RATE 88 /min Jun 20, 2014 weight Ceferino&Ada - 3141-9 WEIGHT 124.4 lb Jun 20, [...] HEIGHT 60 in Jul 05, 2014 weight Ceferino&Ada - 3141-9 WEIGHT 131.4 lb Jul 05, [...]
--- OUTSIDE RECORDS SUMMARY | 2018-06-20 23:40 | XMS REPORT | Continuity of Care Document ---
:1955 Author Organization [facility] Care Team Providers Name Role Phone Brent Gorman MD Unavailable Unavailable Insurance Providers Payer name Policy type / Coverage Policy ID Covered alliance party ID Policy [place] type AETNA - [...] Location Date Office Visit Brent Gorman MD [facility] [place] Dec 26, 2014 Allergies, Adverse Reactions, Alerts Type Substance [...] 2014 smoking status Current every day smoker Dec 26, 2014 smoking status Former smoker Dec 26, 2014 smoking/tobacco cessation, patient education no and counseling Medications Medication Instructions Start Date Status PAXIL 30MG 1 po daily Dec 21, 2013 Active NORCO 10-325 MG TABS 1-2 po q 4-6 hours prn pain March 09, 2014 Inactive CYCLOBENZAPRINE HCL 10 MG TABS 1 po tid prn muscle spasm March 09, 2014 Inactive CYCLOBENZAPRINE HCL 5 MG TABS take one tab every 8hrs prn Feb 16, 2014 Inactive muscle spasm NORCO 10-325 MG TABS 1-2 tablets po every 8 hours Apr 04, 2014 Inactive as needed for pain TYLENOL PM EXTRA STRENGTH TABS Dec 26, 2014 Active TYLENOL EXTRA STRENGTH TABS Dec 26, 2014 Active FLEXERIL prn Feb 08, 2014 Inactive ULTRAM 50 MG TABS take 1-2 tabs every 4-6 hrs Feb 16, 2014 Inactive prn pain HYDROCODONE-ACETAMINOPHEN 10-325 po bid Jun 20, 2014 Inactive MG TABS TRAMADOL HCL 50 MG TABS take one pill every 6-8 hours Jul 13, 2014 Inactive prn pain WALE-PLUS G CAPS Dec 26, 2014 Active LACTULOSE SOLN Dec 26, 2014 Active Vital Signs Date Description Test Result Dec [...] /min Jun 20, 2014 weight Ceferino&Ada - Landon1-9 WEIGHT 124.4 lb Jun 20, 2014 height [...] in Jul 05, 2014 weight Ceferino&Ada - Landon1-9 WEIGHT 131.4 lb Jul 05, 2014 temperature [...] 88 mm Hg Jul 19, 2014 weight Ceferino&Ada - Landon1-9 WEIGHT 125 lb Jul 19, 2014 height E&M - 8302-2 HEIGHT 60 in Jul 19, 2014 temperature E&M TEMPERATURE 97.9 deg f Jul 19, 2014 pulse rate E&M - 8867-4 PULSE RATE 87 /min Jul 19, 2014 blood pressure, systolic - 8480-6 BP SYSTOLIC 130 mm Hg Jul 19, 2014 blood pressure, diastolic - 8462-4 BP DIASTOLIC 81 mm Hg Dec 26, 2014 weight Ceferino&Ada - 3141-9 WEIGHT 136.8 lb Dec 26, 2014 height E&M - 8302-2 HEIGHT 60 in Dec 26, 2014 temperature E&M TEMPERATURE 98.2 deg f Dec 26, 2014 respiratory rate E&M - 9279-1 RESP RATE 16 /min Dec 26, 2014 pulse rate E&M - 8867-4 PULSE RATE 96 /min Dec 26, 2014 blood pressure, systolic - 8480-6 BP SYSTOLIC 141 mm Hg Dec 26, 2014 blood pressure, diastolic - 8462-4 BP DIASTOLIC 89 mm Hg
--- OUTSIDE RECORDS SUMMARY | 2018-06-20 23:40 | XMS REPORT | Continuity of Care Document ---
:1955 Author Organization [facility] Care Team Providers Name Role Phone Brent Gorman MD Unavailable Unavailable Insurance Providers Payer name Policy type / Coverage Policy ID Covered republican ID Policy [place] type AETNA - MEBS [...] Location Date Lab Report Brent Gorman MD [facility] [place] Jul 06, 2014 Allergies, Adverse Reactions, Alerts [...]
[2018-06-20] MEDS ORDERED: AMIODARONE Inj 900 MG/18 mL (=50 MG/ML) VIAL IV ONE (23:57)
[2018-06-21 00:18] LABS: Absolute Lymphocytes (CBC) 3.2 K/uL (0.7-4.9); Absolute Monocytes 0.2 K/uL (0.1-1.3); Absolute Neutrophil 2.5 K/uL (1.8-8.0); Basophils % 1.3 % (0-1.3); Eosinophils % 0.9 % (0-4.4); Hematocrit 37.5 % (36.0-45.0); Lymphocytes % 53.8 % (15.3-44.8); MCH 31.7 pg (27.0-35.0); MPV 9.8 fL (7.6-11.3); Monocytes % 2.7 % (3.3-12.3); RBC Red Blood Cell Count 3.83 M/uL (3.86-4.86)
[2018-06-21 00:37] LABS: Albumin 2.5 g/dL (3.4-5.0); Bilirubin Direct 0.1 mg/dL (0-0.2); Bilirubin Total 0.3 mg/dL (0.2-1.0); CKMB Creatine Kinase MB 8.9 ng/mL (0.3-3.6); Magnesium 2.8 mg/dL (1.8-2.4); Potassium 4.4 mmol/L (3.5-5.1); Protein, Total 5.2 g/dL (6.4-8.2)
--- NOTE | 2018-06-21 00:38 | EDPHYS ---
Physician Documentation [facility] Name: Betsy Boland Age: 62 yrs Sex: Female : 1955 Arrival Date: 06/20/2018 Time: 23:51 Bed 2 Private MD: ED Physician Margarito Sullivan HPI: 06/21 00:06 This 62 yrs old Female presents to ER via Unassigned with complaints of CPR, rn unresponsive. . 00:06 Preceding the arrest, the patient was found down. The arrest occurred at home. rn Pre-hospital course: The arrest was not witnessed by others. Bystanders at the scene performed CPR. ACLS details: Initial rhythm was asystole. The presenting rhythm is asystole. Airway: oral intubation, Medications given by EMS prior to arrival - Epinephrine IV x 5 doses, Atropine IV x 2 doses, Response to therapy: continued arrest. The patient has not experienced similar symptoms in the past. Historical: - Allergies: 00:16 Keflex; fc - Home Meds: 00:16 unknown [Active]; fc - PMHx: 00:16 Cirrhosis; COPD; Diabetes - NIDDM; Chronic pain; fc 00:29 hepatitis C; Emphysema; lp1 - PSHx: 00:29 Unable to obtain; lp1 - Immunization history:: Last tetanus immunization: unknown. - Social history:: Smoking status: unknown. - Family history:: not pertinent. - Ebola Screening: : Patient negative for fever greater than or equal to 101.5 degrees Fahrenheit, and additional compatible Ebola Virus Disease symptoms Patient denies exposure to infectious person Patient denies travel to an Ebola-affected area in the 21 days before illness onset. - Hospitalizations: : No recent hospitalization is reported. ROS: 00:08 Unable to obtain ROS due to found down. rn Exam: 00:08 Constitutional: Well developed, unresponsive, pulseless Head/Face: Normocephalic, rn atraumatic, cyanotic Eyes: pupils dilated and unresponsive ENT: intubated withemesis Cardiovascular: no pulse Respiratory: coarse bilateral breath sounds with bagging, no spont breaths Abdomen/GI: soft, distended Skin: mottled with cyanosis Neuro: GCS 3, no spont activity or reflexes Ventilator: 06/20 23:51 Fi02: 100%; Rate: 16min; T.V.: 500ml; Peep: 5cm; ET tube: 6.5 mm (Oral); fc Procedures: 06/21 00:36 CPR: See CPR flow sheet. Initial patient assessment: unresponsive, pulses present w/ rn compressions, The presenting cardiac rhythm is asystole. the patient was intubated prior to arrival, Compressions: began despite ED evaluation and treatment, the patient . CPR was stopped at 00:02. MDM: 06/20 23:52 Patient medically screened. rn 06/21 00:05 ED course: CPR stopped at 0002, bedside ultrasound does not reveal any cardiac activity rn or central pulses. . 00:36 Differential diagnosis: arrythmia, cardiac arrest, respiratory arrest. Differential rn diagnosis: overdose. Data reviewed: vital signs, nurses notes. Counseling: I had a detailed discussion with the patient and/or guardian regarding:. Response to treatment: There is no appreciated change of the patient's symptoms at this time. 06/20 23:53 Order name: Basic Metabolic Panel rn 06/20 23:53 Order name: CBC with Diff rn 06/20 23:53 Order name: Ckmb rn 06/20 23:53 Order name: CPK rn 06/20 23:53 Order name: LFT's rn 06/20 23:53 Order name: Magnesium rn 06/20 23:53 Order name: NT PRO-BNP rn 06/20 23:53 Order name: Troponin (emerg Dept Use Only) rn 06/20 23:53 Order name: XRAY Chest (1 view) rn 06/20 23:53 Order name: EKG; Complete Time: 23:54 rn 06/20 23:53 Order name: Cardiac monitoring; Complete Time: 00:33 rn 06/20 23:53 Order name: EKG - Nurse/Tech; Complete Time: 00:33 rn 06/20 23:53 Order name: IV Saline Lock; Complete Time: 00:33 rn 06/20 23:53 Order name: Labs collected and sent; Complete Time: 00:34 rn 06/20 23:53 Order name: O2 Per Protocol; Complete Time: 00:34 rn 06/20 23:53 Order name: O2 Sat Monitoring; Complete Time: 00:34 rn Administered Medications: 06/20 23:30 Drug: EPINEPHrine 0.1mg/mL 1:10,000 1 mg {Note: to right IO per Vita RAMSEY.} Route: IVP; fc Site: Other; 23:31 Drug: Sodium Bicarbonate 1 amp {Note: to right IO per Vita RN.} Route: IVP; Site: Other; 23:32 Drug: D50W 50 ml {Note: to right IO per Vita RN.} Route: IVP; Site: Other; 23:34 Drug: NARcan 2 mg {Note: to right IO per Vita RN.} Route: IVP; Site: Other; 23:35 Drug: EPINEPHrine 0.1mg/mL 1:10,000 1 mg {Note: to right IO per Vita RN.} Route: IVP; Site: Other; 23:37 Drug: NS 0.9% 1000 ml {Note: to per Collins Rn.} Route: IV; Rate: 1000 ml; Site: Other; 23:37 Drug: EPINEPHrine 0.1mg/mL 1:10,000 1 mg {Note: to right IO per Collins RN.} Route: IVP; Site: Other; 23:43 Drug: EPINEPHrine 0.1mg/mL 1:10,000 1 mg {Note: to right IO per Loni RN.} Route: IVP; Site: Other; 23:44 Drug: Sodium Bicarbonate 1 amp {Note: to right IO per Loni RN.} Route: IVP; Site: Other; 23:44 Drug: amiodarone 300 mg {Note: per Vita RN.} Route: IVP; Site: left antecubital; 06/21 00:00 Drug: EPINEPHrine 0.1mg/mL 1:10,000 1 mg {Note: per Loni RN.} Route: IVP; Site: left antecubital; 00:30 Not Given (Patient ): amiodarone 900 mg, D5W 500 ml IVPB at 1 mg/min continuous; fc for 6 hrs, then change to 0.5 mg/min Point of Care Testing: Blood Glucose: 06/20 23:33 Blood Glucose: 104 mg/dL; Ranges: Critical Glucose Levels:Adult <50 mg/dl or >400 mg/dl <40 mg/dl or >180 mg/dl Disposition: 06/21 00:36 Critical Care:. . rn Disposition: Patient pronounced on 06/21/18 00:02 by Margarito Sullivan. Impression: Cardiac arrest, Respiratory arrest. - Released to Home. Critical care time excluding procedures: 00:36 Critical care time: Bedside Care: 25 minutes, Family Intervention: 5 minutes. Total rn time: 30 minutes Signatures: Dispatcher [employer] Katie Moyer, RN ROXY Margarito Sullivan MD MD rn Pena, Laura, RN RN lp1 Collins Horn RN RN ao Corrections: (The following items were deleted from the chart) 00:31 06/20 23:54 Arterial Blood Gas+RC.LAB.BRZ ordered. [facility] 06/21 00:34 06/20 23:53 Urine Dipstick-Ancillary ordered. rn ao 06/21 00:34 06/20 23:54 Head Brain Wo Cont+CT.RAD.BRZ ordered. [facility] 06/21 00:41 06/20 23:54 PROTIME (+INR)+COAG.LAB.BRZ ordered. [facility] 06/21 00:41 06/20 23:54 PTT, ACTIVATED+COAG.LAB.BRZ ordered. [facility] 06/21 01:56 00:37 06/21/2018 00:37 Patient pronounced on 06/21/2018 at 00:02 by Margarito Sullivan. ao Impression: Cardiac arrest; Respiratory arrest. Released to Home. rn
--- NOTE | 2018-06-21 00:38 | ER ---
Nurse's Notes [facility] Name: Betsy Boland Age: 62 yrs Sex: Female : 1955 Arrival Date: 06/20/2018 Time: 23:51 Bed 2 Private MD: Diagnosis: Cardiac arrest;Respiratory arrest Presentation: 06/20 23:28 Presenting complaint: EMS states: that they were toned for unresponsive pt who had been fc that way for approx 20 mins. Also last known well was somewhere between 1/2 hr and 2 1/2 hrs. CPR started at 2256. Transition of care: patient was not received from another setting of care. Onset of symptoms was June 20, 2018 at 22:40. Risk Assessment: Do you want to hurt yourself or someone else? Patient reports no desire to harm self or others. Initial Sepsis Screen: Does the patient meet any 2 criteria? Systolic BP < 90 mmHg. Mean Arterial Pressure (MAP) < 65. Yes Does the patient have a suspected source of infection? No. Patient's initial sepsis screen is negative. Care prior to arrival: Oral intubation, with 6.5 ETT CPR via thumper and is still in progress Medication(s) given: EPI x 5 doses and NaBicarb 100 meq IV initiated. right tib IO Glucose check: 81. 23:28 Method Of Arrival: EMS: [facility] 23:28 Acuity: KHALIF 1 23:28 Compressions began prior to arrival. fc Historical: - Allergies: 06/21 00:16 Keflex; fc - Home Meds: 00:16 unknown [Active]; fc - PMHx: 00:16 Cirrhosis; COPD; Diabetes - NIDDM; Chronic pain; 00:29 hepatitis C; Emphysema; lp1 - PSHx: 00:29 Unable to obtain; lp1 - Immunization history:: Last tetanus immunization: unknown. - Social history:: Smoking status: unknown. - Family history:: not pertinent. - Ebola Screening: : Patient negative for fever greater than or equal to 101.5 degrees Fahrenheit, and additional compatible Ebola Virus Disease symptoms Patient denies exposure to infectious person Patient denies travel to an Ebola-affected area in the 21 days before illness onset. - Hospitalizations: : No recent hospitalization is reported. Screenin/25 23:28 Abuse screen: Denies threats or abuse. Nutritional screening: No deficits noted. fc Tuberculosis screening: No symptoms or risk factors identified. Assessment: 23:35 General: Appears distressed, Behavior is unresponsive. Pain: Unable to use pain scale. ao Patient is unresponsive. Neuro: Level of Consciousness is unresponsive, Oriented to unresponsive. Cardiovascular: Capillary refill is > 3 seconds is sluggish skin cold and purple. Rhythm is CPR in progress. Respiratory: Airway via oral intubation Received patient with CPR and oral intubated with manual oxigination. GI: Abdomen is round distended, obese. : No signs and/or symptoms were reported regarding the genitourinary system. EENT: Nares with drainage noted Gastric nasal discharge content noted. . Derm: Skin is dusky, pale, purple. Musculoskeletal: Range of motion: limited in all extremities. 06/21 00:30 Reassessment: [facility] called, spoke with Lisa Castorena; . lp1 00:39 CPR assessment: unresponsive. ao 01:09 Reassessment: Tuber Machine Operator Arturo Keenan at bedside talking to family members. ao 01:52 Reassessment: Body release to [facility]. Patient had some jewelry on that ao was pulled by home and taken by then since family had left already. ED Course: 06/20 23:28 Arm band placed on Patient placed in an exam room, on a stretcher, on oxygen, on surveillance system monitor, on pulse oximetry. 23:28 Patient has correct armband on for positive identification. Bed in low position. Call light in reach. 23:40 Defibrillated with 200 joules. fc 23:42 Defibrillated with 200 joules. fc 23:43 Defibrillated with 200 joules. fc 23:44 Inserted saline lock: 20 gauge in left antecubital area, using aseptic technique. fc ,using aseptic technique. per Collins Rn. 23:51 Patient arrived in ED. fc 23:52 Margarito Sullivan MD is Attending Physician. rn 23:52 EKG done, by ED staff, reviewed by Margarito Sullivan MD. fc 23:54 Inserted saline lock: 20 gauge in right antecubital area, using aseptic technique. fc ,using aseptic technique. per Collins RAMSEY. 06/21 00:03 XRAY Chest (1 view) In Process Unspecified. EDMS 00:15 Triage completed. fc 00:37 Margarito Sullivan MD is Pronouncing Provider. rn 01:54 No provider procedures requiring assistance completed. IV discontinued. ao Administered Medications: 06/20 23:30 Drug: EPINEPHrine 0.1mg/mL 1:10,000 1 mg {Note: to right IO per Vita RN.} Route: IVP; Site: Other; 23:31 Drug: Sodium Bicarbonate 1 amp {Note: to right IO per Vita RN.} Route: IVP; Site: Other; 23:32 Drug: D50W 50 ml {Note: to right IO per Vita RN.} Route: IVP; Site: Other; 23:34 Drug: NARcan 2 mg {Note: to right IO per Vita RN.} Route: IVP; Site: Other; 23:35 Drug: EPINEPHrine 0.1mg/mL 1:10,000 1 mg {Note: to right IO per Vita RN.} Route: IVP; Site: Other; 23:37 Drug: NS 0.9% 1000 ml {Note: to per Collins Rn.} Route: IV; Rate: 1000 ml; Site: Other; fc 23:37 Drug: EPINEPHrine 0.1mg/mL 1:10,000 1 mg {Note: to right IO per Collins RN.} Route: IVP; Site: Other; 23:43 Drug: EPINEPHrine 0.1mg/mL 1:10,000 1 mg {Note: to right IO per Loni RN.} Route: IVP; Site: Other; 23:44 Drug: Sodium Bicarbonate 1 amp {Note: to right IO per Loni RN.} Route: IVP; Site: Other; 23:44 Drug: amiodarone 300 mg {Note: per Vita RN.} Route: IVP; Site: left antecubital; 06/21 00:00 Drug: EPINEPHrine 0.1mg/mL 1:10,000 1 mg {Note: per Loni RN.} Route: IVP; Site: left antecubital; 00:30 Not Given (Patient ): amiodarone 900 mg, D5W 500 ml IVPB at 1 mg/min continuous; fc for 6 hrs, then change to 0.5 mg/min Point of Care Testing: Blood Glucose: 06/20 23:33 Blood Glucose: 104 mg/dL; fc Ranges: Ventilator: 23:51 Fi02: 100%; Rate: 16min; T.V.: 500ml; Peep: 5cm; ET tube: 6.5 mm (Oral); fc Outcome: 06/21 00:02 Outcome Patient fc 01:55 Patient : Time of 00:02 Pronounced by Margarito Sullivan MD Body to home.ao 01:55 Condition: stable 01:56 Patient left the ED. ao Signatures: Dispatcher [employer] EDKatie Valles RN RN Margarito Sullivan MD MD rn Pena, Laura, RN RN lp1 Collins Horn RN RN ao Corrections: (The following items were deleted from the chart) 00:17 00:16 Arm band placed on Patient placed in an exam room, on a stretcher, on oxygen, on fc surveillance system monitor, on pulse oximetry, fc
--- NOTE | 2018-06-21 06:28 | EKG ---
Test Date: 2018-06-20 Test Time: 23:51:36 Brake Rider: TEAGAN MEASUREMENT RESULTS: Intervals: Rate: 35 MA: QRSD: 140 QT: 548 QTc: 418 Bally: P: MA: QRS: 268 T: 93 INTERPRETIVE STATEMENTS: Idioventricular rhythm or junctional rhythm with Right bundle branch block T wave abnormality, consider lateral ischemia Abnormal ECG No previous ECG available for comparison Electronically Signed On 06-21-18 06:27:54 CDT by [place]
--- NOTE | 2018-06-21 11:29 | RAD REPORT ---
EXAM DESCRIPTION: RAD - Chest Single View - 06/21/2018 12:02 am CLINICAL HISTORY: asystole, cardiac arrest Chest pain. COMPARISON: Chest Pa And Lat (2 Views) dated 02/27/2017; Chest Pa And Lat (2 Views) dated 01/06/2017; C hest Pa And Lat (2 Views) dated 03/19/2016; CHEST PA AND LAT 2 VIEW dated 09/02/2014 FINDINGS: Portable technique limits examination quality. The tip of the ET tube is above the landy. The lungs are mildly emphysematous but clear. The heart i s normal in size. No displaced fractures.
== END 2018-06-21 01:56 | disposition expired ==
LOC: ER 23:31
PROC: 5A12012 Performance of Cardiac Output, Single, Manual (ICD-10-PCS; principal; 2018-06-20)
DX: I46.9 Cardiac arrest, cause unspecified (principal); R09.2 Respiratory arrest; Z88.1 Allergy status to other antibiotic agents; J43.9 Emphysema, unspecified; E11.9 Type 2 diabetes mellitus without complications; B19.20 Unspecified viral hepatitis C without hepatic coma; K74.60 Unspecified cirrhosis of liver
CPT/HCPCS: 36415; 71045; 80048; 80076; 82550; 82553; 83735; 83880; 84484; 85025; 92950; 92960; 93005; 99291; J0171; J0282; J2310; J7060